=== PATIENT | female | born 1975 | race Caucasian/White ===

== ENCOUNTER → 2016-07-22 | Outpatient (CLI) | payer OTHER ==
[~2016-07-22] MED LIST: ABIL2TAB2 PO; ALBU17I INH; ALPR.25 PO; BUTA1CAP PO; CYCL-36 PO; CYMB30CA PO; ESTRTAB6; FIORTAB4 PO; HYDR-3533 PO; IBUP-232 PO; IBUP800T23 PO; LEVO.075 PO; METO10TA PO; MULTTAB67 PO; ORPH100T99 PO; RANI150 PO; REGL10TA5 PO; SYNT50TA PO; TAB-TAB PO; TOPA50TA7 PO; TOPI50TA4 PO; TRAM50TA PO; VENTAER INH
[2016-07-22 08:06] LABS: BICARBONATE 27.7 MEQ/L (21.0-32.0); THYROXINE (T4) 7.3 MCG/DL (4.8-13.9)
== END ==
LOC: CLAB 06:35
PROVIDERS: ATTEND Internal Medicine
DX: E03.9 Hypothyroidism, unspecified (principal); R79.89 Other specified abnormal findings of blood chemistry
CPT/HCPCS: 36415; 80048; 84436; 84443

== ENCOUNTER → 2016-07-31 | Outpatient (CLI) | payer OTHER ==
[2016-07-31 10:18] LABS: TOTAL PROTEIN 24 HOUR URINE 215 MG/24HR (0-150); URIC ACID - URINE TIMED 13.1 MG/DL; URIC ACID 24 HOUR URINE 0.6 GM/24HR (0.4-1.0); URINE TOTAL PROTEIN TIMED LESS THAN 5.0 MG/DL
[2016-07-31 10:19] LABS: CREAT 24 TIMED 33.9 MG/DL
[2016-07-31 10:25] LABS: CALCIUM - URINE TIMED LESS THAN 5.0 MG/DL
== END ==
LOC: CLAB 08:00
PROVIDERS: ATTEND Internal Medicine
DX: N28.9 Disorder of kidney and ureter, unspecified (principal)
CPT/HCPCS: 36415; 82340; 82575; 84157; 84560; 86335

== ENCOUNTER 2016-08-17 06:12 | Emergency (ER) | payer OTHER ==
[~2016-08-17] VITALS: Ht 172.7 cm; Wt 66.0 kg
[~2016-08-17 06:12] MED LIST changes: -ABIL2TAB2 PO; -BUTA1CAP PO; -CYMB30CA PO; -HYDR-3533 PO; -IBUP-232 PO; -IBUP800T23 PO; -LEVO.075 PO; -MULTTAB67 PO; -ORPH100T99 PO; -REGL10TA5 PO; -TOPA50TA7 PO; -TRAM50TA PO; -VENTAER INH
[2016-08-17 06:18] VITALS: BP 121/74; PULSE 70; RESP 20; TEMP 98.6; O2SAT 100
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
[2016-08-17] MEDS ORDERED: HYDR-3533 PO (07:17)
--- NOTE | 2016-08-17 07:19 | RADRPT ---
EXAM DATE/TIME: 08/17/2016 06:39 [facility] COMPARISON: No previous studies available for comparison. INDICATIONS : Right lower rib pain from trauma. MEDICAL HISTORY : None. SURGICAL HISTORY : None. ENCOUNTER: Initial ACUITY: 1 day PAIN SCORE: 7/10 LOCATION: Right flank Ribs FINDINGS: Single AP view of the chest. The lungs are clear. Cardiomediastinal silhouette within normal limits. No evidence of pleural effusion or pneumothorax. No gross evidence of fracture. Surgical clips are no paulina in the right upper quadrant of the abdomen. CONCLUSION: No acute cardiopulmonary disease identified. Avery Short MD on August 17, 2016 at 7:15 Board Certified Radiologist. This report was verified electronically.
== END 2016-08-17 07:33 | disposition home or self-care (01) ==
LOC: NEPB 06:12
DX: S20.211A Contusion of right front wall of thorax, initial encounter (principal); E03.9 Hypothyroidism, unspecified; E78.00 Pure hypercholesterolemia, unspecified; Y04.0XXA Assault by unarmed brawl or fight, initial encounter; Y93.9 Activity, unspecified; Y92.9 Unspecified place or not applicable; Y99.0 Civilian activity done for income or pay
CPT/HCPCS: 71010; 99283

== ENCOUNTER 2016-08-24 17:33 | Emergency (ER) | payer OTHER ==
[~2016-08-24] VITALS: Ht 172.7 cm; Wt 66.0 kg
[~2016-08-24 17:33] MED LIST changes: +HYDR-3533 PO
[2016-08-24 17:35] VITALS: BP 130/78; PULSE 85; RESP 14; TEMP 97.7; O2SAT 99
--- NOTE | 2016-08-24 18:26 | PD ---
HPI Chief Complaint: Injury Time Seen by Provider: 18:26 Travel History International Travel<30 days: No Contact w/Intl Traveler<30days: No Traveled to known affect area: No History of Present Illness HPI 40-year-old female presents to the emergency Department with complaint of left ankle pain after doing a handstand yesterday and falling backwards injuring her left ankle. She has been ambulatory on the affected extremity. Denies paresthesias, loss of sensation to the affected extremity. Reports decreased range of motion at the ankle secondary to pain and swelling. Reports bruising to the lateral aspect. Denies fever, chills, nausea, vomiting. Has taken Tylenol and ibuprofen with minimal relief of pain. Has tried elevating and icing it with no relief of symptoms. History of asthma. Allergies to adhesives , Bactrim, latex, morphine, Percocet. No other modifying factors or associated signs and symptoms. PFSH Past Medical History Arthritis: Yes (RIGHT KNEE, RIGHT WRIST) Asthma: Yes Autoimmune Disease: Yes Heart Rhythm Problems: No Cancer: No Cardiac Catheterization: No Cardiovascular Problems: No High Cholesterol: Yes Congestive Heart Failure: No Cerebrovascular Accident: No Diabetes: No Diminished Hearing: No Gastrointestinal Disorders: Yes GERD: No Genitourinary: No Headaches: Yes Hiatal Hernia: No Immune Disorder: No Musculoskeletal: Yes Neurologic: Yes Psychiatric: No Reproductive: No Respiratory: Yes (ASTHMA) Migraines: Yes Renal Failure: Yes Seizures: No Sleep Apnea: No Thyroid Disease: Yes (HYPOTHYROID) Ulcer: No PNEUMOCCOCAL Vaccine (Year): 3 ?: Not : 3 Para: 3 Dilation and Curettage (D&C): Yes Tubal Ligation: Yes Past Surgical History Abdominal Surgery: Yes (APPY, CHOLY) Appendectomy: Yes Cardiac Surgery: No Cholecystectomy: Yes Coronary Artery Bypass Graft: No Ear Surgery: No Endocrine Surgery: No Eye Surgery: No Genitourinary Surgery: No Hysterectomy: Yes Oral Surgery: No Thoracic Surgery: No Tonsillectomy: Yes Other Surgery: Yes Social History Alcohol Use: No Tobacco Use: No Substance Use: No Allergies-Medications (Allergen,Severity, Reaction): Coded Allergies: Adhesives (Verified Allergy, Severe, Itching, 08/17/16) Bactrim (Verified Allergy, Severe, Hives, 08/17/16) Latex (Verified Allergy, Severe, RASH AND SHORTNESS OF BREATH, 08/17/16) Morphine (Verified Allergy, Severe, Shortness of Breath, 08/17/16) Percocet (Verified Allergy, Severe, Shortness of Breath (PATIENT TAKES LORTAB AT HOME), 08/17/16) Reported Meds & Prescriptions Reported Meds & Active Scripts Active Ibuprofen 800 Mg Tab 800 Mg PO Q6HR PRN Lortab (Hydrocodone-Acetaminophen) 5-325 Mg Tab 1 Tab PO Q6H PRN Reglan (Metoclopramide HCl) 10 Mg Tab 10 Mg PO ONCE PRN Flexeril (Cyclobenzaprine HCl) 10 Mg Tab 10 Mg PO TID Reported Topamax (Topiramate) 50 Mg Tab 50 Mg PO TID Xanax 0.25 Mg (Alprazolam) 0.25 Mg Tab 0.25 Mg PO BID Zantac 150 Mg Tab (Ranitidine HCl) 150 Mg Tab 150 Mg PO DAILY Fioricet (Acetaminophen/Butalbital/Caffeine) Tab 1 Tab PO Q4HPRN FOR HEADACHE Proventil Mdi (Albuterol Sulfate) 17 Gm Aero 2 Puff INH Q4HPRN Synthroid 50 mcg (Levothyroxine Sodium) 50 Mcg Tab 50 Mcg PO DAILY@0600 Multivitamin (Multivitamins) 1 Tab Tab 1 Tab PO DAILY [Estroven] Review of Systems Except as stated in HPI: all other systems reviewed are Neg Physical Exam Narrative GENERAL: Well-nourished, well-developed female patient, in no acute distress SKIN: Warm and dry. HEAD: Atraumatic. Normocephalic. EYES: Pupils equal and round. No scleral icterus. No injection or drainage. ENT: Mucosa pink and moist. Airway patent. NECK: Trachea midline. CARDIOVASCULAR: Regular rate. RESPIRATORY: No accessory muscle use. GASTROINTESTINAL: Flat. MUSCULOSKELETAL: Left ankle with point tenderness to the lateral malleolar zone ; ecchymosis and edema to the lateral aspect; ecchymosis to the medial aspect; decreased range of motion; no obvious deformities. Left lower extremity supple and non-tense with 2+ pedal pulse and sensory intact. No obvious deformities. No clubbing. No cyanosis. No edema. NEUROLOGICAL: Awake and alert. Oriented 3. No obvious cranial nerve deficits. Motor grossly within normal limits. Normal speech. PSYCHIATRIC: Appropriate mood and affect; insight and judgment normal. Data Data Last Documented VS Vital Signs Date Time Temp Pulse Resp B/P Pulse Ox O2 Delivery O2 Flow Rate FiO2 08/24/16 17:35 97.7 85 14 130/78 99 Orders Ankle, Complete ([id number]) (08/24/16 18:21) Acetamin-Hydrocod 325-5 Mg (Cecil 5-325 (08/24/16 18:45) Crutches (08/24/16 18:54) Splint Or Brace Apply/Monitor (08/24/16 19:08) Brace Ankle Stirrup (08/24/16 ) [facility]DM Medical Decision Making Medical Screen Exam Complete: Yes Emergency Medical Condition: Yes Medical Record Reviewed: Yes Differential Diagnosis Ankle sprain, ankle fracture, ankle dislocation Narrative Course 40-year-old female with left ankle injury. Left lower extremity supple and non- tense with 2+ pedal pulses and sensory intact. Lortab administered in the ER. Left ankle x-ray ordered. 1900: Left ankle x-ray with no acute findings other than soft tissue swelling. Hi bandage and ankle stirrup splint applied. Crutches provided for support. Ibuprofen prescribed for home. Instructed patient to follow up if symptoms persist greater than 7-10 days. Patient verbalized understanding and agreement with treatment plan. Patient is medically cleared and stable for discharge. Discussed reasons to return to the emergency department. Instructed patient to follow up with primary care provider. Patient agrees with treatment plan. The patients vital signs are stable and the patient is stable for outpatient follow- up and treatment. Patient discharged home, stable and in no acute distress. Diagnosis Primary Impression: Left ankle sprain Qualified Code: S93.402A - Sprain of left ankle, unspecified ligament, initial encounter Referrals: Orthopedist Primary Care Physician Patient Instructions: Crutch Instructions (ED), General Instructions Additional Instructions: Tylenol/ibuprofen every 6 hours as directed and as needed for pain Rest, ice, compress, and elevate extremity to decrease pain and inflammation Brace for support Crutches for support Avoid aggravating activity; increase activity as tolerated Follow-up with primary care provider Return to the emergency department immediately with worsening symptoms Med/Other Pt SpecificInfo: Prescription(s) given Scripts Ibuprofen 800 Mg [id number] Mg PO Q6HR PRN (PAIN) #30 TAB Ref 0 Prov:Vivian Sarabia 08/24/16 Disposition: 01 DISCHARGE HOME Condition: Stable Vivian Sarabia Aug 24, 2016 18:26
[2016-08-24] MEDS ORDERED: ACETAMINOPHEN/HYDROcodone 325 MG/5 MG TAB PO ONE (18:45)
[2016-08-24] MEDS ORDERED: IBUP800T23 PO (19:09)
--- NOTE | 2016-08-24 19:09 | RADRPT ---
EXAM DATE/TIME: 08/24/2016 18:57 [facility] COMPARISON: No previous studies available for comparison. INDICATIONS : Left ankle pain with swelling and redness MEDICAL HISTORY : None. SURGICAL HISTORY : None. ENCOUNTER: Initial ACUITY: 1 day PAIN SCORE: 8/10 LOCATION: Left ankle FINDINGS: Ankle mortise is approximated. Mild soft tissue swelling at the lateral aspect of the ankle. No fract ures are seen. CONCLUSION: Mild soft tissue swelling. Timmy Tavares MD on August 24, 2016 at 19:07 Board Certified Radiologist. This report was verified electronically.
== END 2016-08-24 19:38 | disposition home or self-care (01) ==
LOC: NEPB 17:33
DX: S93.402A Sprain of unspecified ligament of left ankle, initial encounter (principal); E78.00 Pure hypercholesterolemia, unspecified; E03.9 Hypothyroidism, unspecified; J45.909 Unspecified asthma, uncomplicated; W18.30XA Fall on same level, unspecified, initial encounter; Y93.43 Activity, gymnastics; Y92.9 Unspecified place or not applicable
CPT/HCPCS: 73610; 99283; E0113; L1906

== ENCOUNTER 2016-11-23 02:19 | Inpatient (IN) | payer OTHER ==
[~2016-11-23] VITALS: Ht 172.7 cm; Wt 68.7 kg
[~2016-11-23 02:19] MED LIST changes: +IBUP800T23 PO
[2016-11-23 02:21] VITALS: BP 140/73; PULSE 81; RESP 16; TEMP 97.8; O2SAT 100
[2016-11-23] MEDS ORDERED: CYMB30CA PO (02:43)
[2016-11-23] MEDS ORDERED: REGL10TA5 PO (02:43)
[2016-11-23] MEDS ORDERED: TOPA50TA7 PO (02:43)
[2016-11-23] MEDS ORDERED: ALPR.25 PO (02:43)
[2016-11-23] MEDS ORDERED: LEVO.075 PO (02:43)
[2016-11-23] MEDS ORDERED: VENTAER INH (02:43)
[2016-11-23] MEDS ORDERED: BUTA1CAP PO (02:43)
[2016-11-23] MEDS ORDERED: MULTTAB67 PO (02:43)
--- NOTE | 2016-11-23 02:46 | PD ---
HPI Chief Complaint: Headache Time Seen by Provider: 02:38 Travel History International Travel<30 days: No Contact w/Intl Traveler<30days: No Traveled to known affect area: No History of Present Illness HPI 40-year-old female complains of headache, depression, suicidal. Patient has history of recurrent headache, migraine headache, in the past. Patient started having severe depression this evening with some suicidal ideation. Patient denies any overdose on medication. Patient denies any history of substance abuse or alcohol abuse. Patient states that headache is diffuse aching headache. Patient denies any visual change. Patient denies any neck pain. Patient denies any chest pain or shortness of breath. Patient denies abdominal pain. Patient denies any focal weakness or numbness of extremity. PFSH Past Medical History Arthritis: Yes (RIGHT KNEE, RIGHT WRIST) Asthma: Yes Autoimmune Disease: Yes Heart Rhythm Problems: No Cancer: No Cardiac Catheterization: No Cardiovascular Problems: No High Cholesterol: Yes Congestive Heart Failure: No Cerebrovascular Accident: No Diabetes: No Diminished Hearing: No Gastrointestinal Disorders: Yes GERD: No Genitourinary: No Headaches: Yes Hiatal Hernia: No Immune Disorder: No Musculoskeletal: Yes Neurologic: Yes Psychiatric: No Reproductive: No Respiratory: Yes (ASTHMA) Migraines: Yes Renal Failure: Yes Seizures: No Sleep Apnea: No Thyroid Disease: Yes (HYPOTHYROID) Ulcer: No PNEUMOCCOCAL Vaccine (Year): 3 : 3 Para: 3 Dilation and Curettage (D&C): Yes Tubal Ligation: Yes Past Surgical History Abdominal Surgery: Yes (APPY, CHOLY) Appendectomy: Yes Cardiac Surgery: No Cholecystectomy: Yes Coronary Artery Bypass Graft: No Ear Surgery: No Endocrine Surgery: No Eye Surgery: No Genitourinary Surgery: No Hysterectomy: Yes Oral Surgery: No Thoracic Surgery: No Tonsillectomy: Yes Other Surgery: Yes Social History Alcohol Use: No Tobacco Use: No Substance Use: No Allergies-Medications (Allergen,Severity, Reaction): Coded Allergies: Adhesives (Verified Allergy, Severe, Itching, 11/23/16) Bactrim (Verified Allergy, Severe, Hives, 11/23/16) Latex (Verified Allergy, Severe, RASH AND SHORTNESS OF BREATH, 11/23/16) Morphine (Verified Allergy, Severe, Shortness of Breath, 11/23/16) Percocet (Verified Allergy, Severe, Shortness of Breath (PATIENT TAKES LORTAB AT HOME), 11/23/16) Reported Meds & Prescriptions Reported Meds & Active Scripts Active Ibuprofen 800 Mg Tab 800 Mg PO Q6HR PRN Lortab (Hydrocodone-Acetaminophen) 5-325 Mg Tab 1 Tab PO Q6H PRN Reported Reglan (Metoclopramide HCl) 10 Mg Tab 10 Mg PO DIRECTED Fioricet (Thkdgzaegc-Hleffyqfengxy-Whqcpiko) 50-300-40 Mg Cap 2 Cap PO Q6H PRN Ventolin Hfa 18 GM Inh (Albuterol Sulfate) 90 Mcg/Act Aer 2 Puff INH Q4-6H PRN Multiple Vitamin 1 Tab 1 Tab PO DAILY Synthroid (Levothyroxine Sodium) 75 Mcg Tab 75 Mcg PO DAILY Topamax (Topiramate) 50 Mg Tab 50 Mg PO BID Xanax (Alprazolam) 0.25 Mg Tab 0.25 Mg PO Q4H PRN Cymbalta DR (Duloxetine HCl) 30 Mg Capdr 30 Mg PO DAILY [Estroven] Review of Systems General / Constitutional: No: Fever Eyes: No: Visual changes HENT: Positive: Headaches Cardiovascular: No: Chest Pain or Discomfort Respiratory: No: Shortness of Breath Gastrointestinal: No: Abdominal Pain Genitourinary: No: Dysuria Musculoskeletal: No: Pain Skin: No Rash Neurologic: No: Weakness Psychiatric: Positive: Depression, Suicidal Ideations Endocrine: No: Polydipsia Hematologic/Lymphatic: No: Easy Bruising Physical Exam Narrative GENERAL: Well-nourished, well-developed patient. SKIN: Focused skin assessment warm/dry. HEAD: Normocephalic. EYES: No scleral icterus. No injection or drainage. NECK: Supple, trachea midline. No JVD or lymphadenopathy. CARDIOVASCULAR: Regular rate and rhythm without murmurs, gallops, or rubs. RESPIRATORY: Breath sounds equal bilaterally. No accessory muscle use. GASTROINTESTINAL: Abdomen soft, non-tender, nondistended. MUSCULOSKELETAL: No cyanosis, or edema. BACK: Nontender without obvious deformity. No CVA tenderness. Neurologic exam normal. Data Data Last Documented VS Vital Signs Date Time Temp Pulse Resp B/P Pulse Ox O2 Delivery O2 Flow Rate FiO2 11/23/16 02:21 97.8 81 16 140/73 100 Orders Complete Blood Count With Diff (11/23/16 02:29) Comprehensive Metabolic Panel (11/23/16 02:29) Drug Screen, Random Urine (11/23/16 02:29) Alcohol (Ethanol) (11/23/16 02:29) Salicylates (Aspirin) (11/23/16 02:29) Tylenol (Acetaminophen) (11/23/16 02:29) Psych Screen (11/23/16 02:55) Labs Laboratory Tests Test 11/23/16 11/23/16 02:34 02:46 White Blood Count 9.0 TH/MM3 Red Blood Count 4.41 MIL/MM3 Hemoglobin 13.8 GM/DL Hematocrit 39.7 % Mean Corpuscular Volume 89.9 FL Mean Corpuscular Hemoglobin 31.3 PG Mean Corpuscular Hemoglobin 34.8 % Concent Red Cell Distribution Width 12.6 % Platelet Count 293 TH/MM3 Mean Platelet Volume 8.3 FL Neutrophils (%) (Auto) 44.3 % Lymphocytes (%) (Auto) 37.3 % Monocytes (%) (Auto) 13.3 % Eosinophils (%) (Auto) 3.9 % Basophils (%) (Auto) 1.2 % Neutrophils # (Auto) 4.0 TH/MM3 Lymphocytes # (Auto) 3.3 TH/MM3 Monocytes # (Auto) 1.2 TH/MM3 Eosinophils # (Auto) 0.4 TH/MM3 Basophils # (Auto) 0.1 TH/MM3 CBC Comment DIFF FINAL Differential Comment Sodium Level 141 MEQ/L Potassium Level 3.9 MEQ/L Chloride Level 108 MEQ/L Carbon Dioxide Level 27.1 MEQ/L Anion Gap 6 MEQ/L Blood Urea Nitrogen 11 MG/DL Creatinine 0.89 MG/DL Estimat Glomerular Filtration 71 ML/MIN Rate Random Glucose 94 MG/DL Calcium Level 8.1 MG/DL Total Bilirubin 0.2 MG/DL Aspartate Amino Transf 31 U/L (AST/SGOT) Alanine Aminotransferase 61 U/L (ALT/SGPT) Alkaline Phosphatase 80 U/L Total Protein 7.2 GM/DL Albumin 4.2 GM/DL Salicylates Level LESS THAN 1.7 MG/DL Acetaminophen Level LESS THAN 2.0 MCG/ML Ethyl Alcohol Level LESS THAN 3 MG/DL Urine Opiates Screen NEG Urine Barbiturates Screen POS Urine Amphetamines Screen NEG Urine Benzodiazepines Screen NEG Urine Cocaine Screen NEG Urine Cannabinoids Screen NEG MDM Medical Decision Making Medical Screen Exam Complete: Yes Emergency Medical Condition: Yes Interpretation(s) 3:18 AM. CBC within normal limit. CMP within normal limit. Urine drug screen positive for barbiturates. Acetaminophen negative. Salicylates negative. Alcohol negative. Differential Diagnosis Differential diagnosis including tension headache, cluster headache, migraine headache, chest disorder, depression, suicidal. Narrative Course 40-year-old female with headache, depression, suicidal. 3:18 AM. Patient is medical cleared for psychiatric evaluation and disposition. Diagnosis Primary Impression: Cephalgia Qualified Code: R51 - Nonintractable episodic headache, unspecified headache type Joby Shoemaker MD Nov 23, 2016 02:46
[2016-11-23 03:00] LABS: BASOPHIL # 0.1 TH/MM3 (0-0.2); BASOPHIL % 1.2 % (0.0-2.0); EOSINOPHIL # 0.4 TH/MM3 (0-0.4); EOSINOPHIL % 3.9 % (0.0-4.0); HEMATOCRIT 39.7 % (35.0-46.0); HEMO FLAGS DIFF FINAL; LYMPH % 37.3 % (9.0-44.0); LYMPHOCYTE # 3.3 TH/MM3 (1.0-4.8); MEAN CELL VOLUME 89.9 FL (80.0-100.0); MEAN CORPUSCULAR HEMOGLOBIN 31.3 PG (27.0-34.0); MEAN CORPUSCULAR HGB CONC 34.8 % (32.0-36.0); MONO % 13.3 % (0.0-8.0); NEUT % 44.3 % (16.0-70.0); PLATELET COUNT 293 TH/MM3 (150-450); RED BLOOD COUNT 4.41 MIL/MM3 (4.00-5.30); RED CELL DISTRIBUTION WIDTH 12.6 % (11.6-17.2)
[2016-11-23 03:01] LABS: AMPHETAMINE, URINE NEG (NEG); BARBITURATES, URINE POS (NEG); COCAINE, URINE NEG (NEG)
[2016-11-23 03:09] LABS: ACETAMINOPHEN LESS THAN 2.0 MCG/ML (10.0-30.0); ALT (GPT) 61 U/L (10-53)
[2016-11-23 03:11] LABS: ALKALINE PHOSPHATASE 80 U/L (45-117); TOTAL BILIRUBIN ADULT 0.2 MG/DL (0.2-1.0)
[2016-11-23 03:13] LABS: ANION GAP 6 MEQ/L (5-15); AST (GOT) 31 U/L (15-37); BICARBONATE 27.1 MEQ/L (21.0-32.0); BLOOD UREA NITROGEN 11 MG/DL (7-18); CHLORIDE 108 MEQ/L (98-107); GLOMERULAR FILTRATION RATE 71 ML/MIN (>89); POTASSIUM 3.9 MEQ/L (3.5-5.1); SODIUM (NA) 141 MEQ/L (136-145)
[2016-11-23] MEDS ORDERED: BENZTROPINE MESYLATE 1 MG TAB PO PRN (03:45)
[2016-11-23] MEDS ORDERED: diphenhydrAMINE HCL 50 MG CAP - HS PRN PO (03:45)
[2016-11-23] MEDS ORDERED: LORazepam 2 MG/ML VIAL IM PRN (03:45)
[2016-11-23] MEDS ORDERED: MAGNESIUM HYDROXIDE SUSP 30 ML CUP PO PRN (03:45)
[2016-11-23] MEDS ORDERED: ALUMINUM/MAGNESIUM/SIMETH 30 ML CUP PO PRN (03:45)
[2016-11-23] MEDS ORDERED: ACETAMINOPHEN 325 MG TAB PO PRN (03:45)
[2016-11-23] MEDS ORDERED: BENZTROPINE MESYLATE 2 MG/2 ML VIAL IM PRN (03:45)
[2016-11-23] MEDS ORDERED: LORazepam 1 MG TAB PO PRN (03:45)
[2016-11-23 06:17] VITALS: BP 125/58; PULSE 76; RESP 18; TEMP 97.4; O2SAT 99
[2016-11-23] MEDS: NICOTINE 21 MG/24 HR PATCH T-DERMAL SCH (09:00)
[2016-11-23] MEDS: ARIPiprazole 2 MG TAB PO SCH (14:04)
--- NOTE | 2016-11-23 14:07 | HHI.HP ---
Provisional Diagnosis Admission Date Nov 23, 2016 at 03:35 Frazee I. 1. Adjustment disorder with depressed mood Frazee II. Deferred Frazee V. GAF is 40 presently Certification of Person's Competence To Provide Express and Informed Consent I have personally examined Blank Pelletier , a person being served at [facility] on, Nov 23, 2016 14:07. Express and informed consent means consent voluntarily given in writing, by a competent person, after sufficient explanation and disclosure of the subject matter involved to enable the person to make a knowing and willful decision without any element of force, fraud, deceit, duress, or other form of constraint or coercion. This person is 18 years of age or older, is not now known to be incompetent to consent to treatment with a guardian advocate, and does not have a health care surrogate or proxy currently making medical treatment decisions. I have found this person to be one of the following: [x] Competent to provide express and informed consent, as defined above, for voluntary admission to this facility and is competent to provide express and informed consent for treatment. He/she has the consistent capacity to make well reasoned, willful, and knowing decisions concerning his or her medical or mental health treatment. The person fully and consistently understands the purpose of the admission for examination/placement and is fully capable of personally exercising all rights assured under [place] Incompetent to provide express and informed consent to voluntary admission, and this is incompetent to provide express and informed consent to treatment. The person must be transferred to involuntary status and a petition for a guardian advocate filed with the Circuit Court. [] Refusing to provide express and informed consent to voluntary admission but is competent to provide express and informed consent for treatment. The person must be discharged or transferred to involuntary status. Form shall be completed within 24 hours of a person's arrival at the receiving facility and filed in the clinical record of each person: 1. Admitted on a voluntary basis 2. Permitted to provide express and informed consent to his/her own treatment 3. Allowed to transfer from involuntary to voluntary status 4. Prior to permitting a person to consent to his or her own treatment after having been previously found incompetent to consent to treatment. History of Present Illness Capacity: Has Capacity HPI Mrs. Pelletier is a 40-year-old female with a reported history of depression who presented voluntarily for psychiatric evaluation with complaints of depression and suicidal ideation. Reviewing the electronic medical record, I see no prior psychiatric contact within our system. Patient seen and examined with nurse Mathis. Chart reviewed. Case discussed with nursing staff. On my examination today, the patient complains of worsening depression since her mother about a year ago. She says that she has been having suicidal thoughts for the last 2 days or so and says that she could overdose on pills. 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 She says that these feelings became acutely worse last night as her parents anniversary was coming up today. She says that she tried to exercise which normally helps lift her mood but it didn' t on this occasion. Feeling as badly as she did, she decided to seek psychiatric help. Suicidal ideation is lessening today. Mood remains depressed. Sleep varies between extremely poor and hypersomnia. Fatigue is present. Appetite decreased. No hopeless or worthless feelings. Some generalized anxiety but no panic or obsessional thinking or compulsive behaviors. Denies audiovisual hallucinations. No evident delusions. The remainder of the psychiatric ROS is negative. No physical complaints at this time. Past psychiatric history: The patient endorses a history of depression. She is not currently under the care of a psychiatrist. She receives Cymbalta at a dose of 30 mg from her primary care doctor. She has tried to titrate this in the past but found that it worsens suicidal ideation at higher doses. She was admitted to [facility] on one occasion in the past following an overdose at age 20. She also endorses a history of nonsuicidal self-injurious behavior in adolescence. Other medication trials include Wellbutrin, on which the patient experienced intolerable weight gain. Review of Systems Except as stated in HPI: all other systems reviewed are Neg Past Psych History Psychological trauma history Denies any trauma history to me. Violence risk - others (6 mos) Lower imminent risk. Denies HI. No known history of violence. Violence risk - self (6 mos) Elevated. Recent worsening of mood with onset of SI. H/o SA. Substance Abuse History Drugs/Alcohol past 12 months Patient denies any history of abuse of drugs or alcohol. Past Family Social History Coded Allergies: Adhesives (Verified Allergy, Severe, Itching, 11/23/16) Bactrim (Verified Allergy, Severe, Hives, 11/23/16) Latex (Verified Allergy, Severe, RASH AND SHORTNESS OF BREATH, 11/23/16) Morphine (Verified Allergy, Severe, Shortness of Breath, 11/23/16) Percocet (Verified Allergy, Severe, Shortness of Breath (PATIENT TAKES LORTAB AT HOME), 11/23/16) Past Medical History See electronic medical record. Takes Topamax and Fioricet for migraine headache. Takes Synthroid for hypothyroidism. Takes albuterol for asthma. Active Scripts Ibuprofen 800 Mg [id number] Mg PO Q6HR PRN (PAIN) #30 TAB Ref 0 Prov:Vivian Sarabia TOOLROOM KEEPER 08/24/16 Hydrocodone-Acetaminophen (Lortab)5-325 Mg Tab1 Tab PO Q6H PRN (PAIN GREATER THAN 6) #12 TAB Ref 0 Prov:Lucila See MD 08/17/16 Reported Medications Metoclopramide (Reglan)10 Mg Tab10 Mg PO DIRECTED #120 TAB Ref 0 11/23/16 Suxkqnweox-Rachophupakgl-Wpoqzjip (Fioricet)50-300-40 Mg Cap2 Cap PO Q6H PRN ( HEADACHE) Ref 0 11/23/16 Albuterol 18 GM Inh (Ventolin Hfa 18 GM Inh)90 Mcg/Act Aer2 Puff INH Q4-6H PRN ( SHORTNESS OF BREATH) #1 INHALER Ref 0 11/23/16 Multiple Vitamin 1 Tab1 Tab PO DAILY Ref 0 11/23/16 Levothyroxine (Synthroid)75 Mcg Tab75 Mcg PO DAILY #30 TAB Ref 0 11/23/16 Topiramate (Topamax)50 Mg Tab50 Mg PO BID #60 TAB Ref 0 11/23/16 Alprazolam (Xanax)0.25 Mg Tab0.25 Mg PO Q4H PRN (ANXIETY) Ref 0 11/23/[address] (Cymbalta DR)30 Mg Capdr30 Mg PO DAILY #30 CAP Ref 0 11/23/16 [Estroven] No Conflict Check 02/03/11 Current Medications Medications (Trade) Dose Ordered Sig/Ifrah Route Start Time Stop Time Status Last Admin (Ativan) 1 mg Q6H PRN PO 11/23/16 03:45 (Ativan Inj) 1 mg Q6H PRN IM 11/23/16 03:45 (Cogentin) 1 mg Q12H PRN PO 11/23/16 03:45 (Cogentin Inj) 1 mg Q12H PRN IM 11/23/16 03:45 (Benadryl) 50 mg HS PRN PO 11/23/16 03:45 (Tylenol) 650 mg Q4H PRN PO 11/23/16 03:45 (Milk Of Magnesia Liq) 30 ml DAILY PRN PO 11/23/16 03:45 (Mag-Al Plus Susp Liq) 30 ml Q6H PRN PO 11/23/16 03:45 (Habitrol 21 Mg Patch.24 Hr) 1 patch DAILY T-DERMAL 11/23/16 09:00 Miscellaneous Information 1 HS T-DERMAL 11/23/16 21:00 (Proair Hfa Inh) 2 puff Q4H PRN INH 11/23/16 14:15 UNV (Cymbalta Dr) 30 mg DAILY PO 11/24/16 09:00 UNV (Synthroid) 75 mcg DAILY PO 11/24/16 09:00 UNV (Topamax) 50 mg BID PO 11/23/16 21:00 UNV Non-Formulary Medication 2 cap Q6H PRN PO 11/23/16 14:15 UNV Non-Formulary Medication 1 tab DAILY PO 11/24/16 09:00 UNV Family History Patient reports that her mother had a history of depression and may have intentionally overdosed. Unsure of family chemical dependency history. She does suspect that her maternal grandfather was an alcoholic. Social History Patient is although she notes that the marriage is somewhat tense. She has 3 children. She works as a nurse in the emergency department. She denies any or legal history. She was raised [employer] but grew away from the yazdanism after her mother's passing. Her keeps a shotgun but she does not have access to it. Patient's Strengths (min. 2) Intelligent. Verbally fluent. Physical Exam Physical examination completed by the ED provider. On my examination today, the patient appears to be in no acute physical distress. No motor abnormalities noted. Laboratories and vital signs reviewed: Vital Signs Vital Signs Date Time Temp Pulse Resp B/P Pulse Ox O2 Delivery O2 Flow Rate FiO2 11/23/16 06:17 97.4 76 18 125/58 99 Lab Results Item Value Date Time White Blood Count 9.0 TH/MM3 11/23/16 0234 Hemoglobin 13.8 GM/DL 11/23/16 0234 Platelet Count 293 TH/MM3 11/23/16 0234 Sodium Level 141 MEQ/L 11/23/16 0234 Potassium Level 3.9 MEQ/L 11/23/16 0234 Chloride Level 108 MEQ/L H 11/23/16 0234 Carbon Dioxide Level 27.1 MEQ/L 11/23/16 0234 Blood Urea Nitrogen 11 MG/DL 11/23/16 0234 Creatinine 0.89 MG/DL 11/23/16 0234 Aspartate Amino Transf (AST/SGOT) 31 U/L 11/23/16 0234 Alanine Aminotransferase (ALT/SGPT) 61 U/L H 11/23/16 0234 Alkaline Phosphatase 80 U/L 11/23/16 0234 Free Thyroxine 0.94 NG/DL 11/23/16 0234 Thyroid Stimulating Hormone 3rd Gen 1.820 uIU/ML 11/23/16 0234 Beta HCG, Qualitative LESS THAN 1 MIU/ML 11/23/16 0234 Urine Barbiturates Screen POS H 11/23/16 0246 Ethyl Alcohol Level LESS THAN 3 MG/DL 11/23/16 0234 Mental Status Examination Patient is in hospital gown. She is fairly well groomed and certainly maintaining basic hygiene. She is awake and alert and oriented to person and hospital at least. No evidence of delirium. No abnormal motor movements noted. Speech is within normal limits for rate, tone and volume. Language and fund of knowledge seem average. Mood is depressed and affect is restricted. Thought process linear. No loosening of associations. No evident delusional beliefs. Denies audiovisual hallucinations. Suicidal ideation is lessening. No reported urge to hurt herself on the inpatient psychiatric unit. No homicidal ideation. Insight and judgment are fair. Assessment & Plan Problem List: (1) Adjustment disorder ICD Code: F43.20 Assessment & Plan This is a 40-year-old female with psychiatric history as detailed above who is presently voluntarily admitted to the inpatient psychiatric unit. Patient describes recent acute worsening of depression overlying the general trend towards worsening mood over the past year or so since her mother's passing. Patient describes acute onset of suicidal ideation. Patient has been maintained on Cymbalta at low dose and would like to continue this as it reportedly helps with migraine headaches. We discussed various augmentation strategies and settle on the treatment plan detailed below. Patient requires psychiatric admission at this time for observation and stabilization. Admit inpatient. Voluntary status. Continue Cymbalta as ordered. Augment with Abilify 2 mg daily. Continue Fioricet and Topamax for migraine headache. Continue albuterol inhaler for asthma. Continue Synthroid for hypothyroidism. TFTs within normal limits. Ativan as needed for anxiety, Cogentin as needed for EPS, Benadryl as needed for sleep. Vitals every shift. Counselor to see. Disposition planning. Estimated length of stay: 5-7 days. Discharge Planning Pending psychiatric stabilization. Request HC Surrog/Guard Advoc?: No Problem Qualifiers (1) Adjustment disorder: Qualified Code: F43.21 - Adjustment disorder with depressed mood Gareth Prince MD Nov 23, 2016 14:07
[2016-11-23] MEDS ORDERED: ALBUTEROL SULFATE 90 MCG/ACT HFA 18 GM INHALER INH PRN (14:15)
[2016-11-23 14:34] LABS: FREE T4 0.94 NG/DL (0.76-1.46)
[2016-11-23 14:39] LABS: BHCG SCREEN QUALITATIVE LESS THAN 1 MIU/ML (0-5)
[2016-11-23] MEDS: ACETAMIN 325 MG/BUTALBITAL 50 MG/CAFFEINE 40 MG TAB PO PRN (17:37)
[2016-11-23 18:24] VITALS: BP 120/65; PULSE 74; RESP 18; TEMP 97.7; O2SAT 98
[2016-11-23] MEDS: REMOVE OLD NICOTINE PATCH T-DERMAL SCH (21:00)
[2016-11-23] MEDS: TOPIRAMATE 25 MG TAB PO SCH (22:35)
[2016-11-24 06:19] VITALS: BP 111/62; PULSE 75; RESP 16; TEMP 98.6; O2SAT 100
[2016-11-24] MEDS: NICOTINE 21 MG/24 HR PATCH T-DERMAL SCH (08:34)
[2016-11-24] MEDS: ARIPiprazole 2 MG TAB PO SCH (08:34)
[2016-11-24] MEDS: DULoxetine HCl DR 30 MG CAP PO SCH (08:34)
[2016-11-24] MEDS: MULTIVITAMIN TAB PO SCH (08:34)
[2016-11-24] MEDS: TOPIRAMATE 25 MG TAB PO SCH ×2 (08:34→20:42)
[2016-11-24] MEDS: ACETAMIN 325 MG/BUTALBITAL 50 MG/CAFFEINE 40 MG TAB PO PRN (09:00)
[2016-11-24] MEDS ORDERED: LEVOTHYROXINE SODIUM 75 MCG TAB PO SCH (09:00)
[2016-11-24 10:26] LABS: HDL CHOLESTEROL 69.7 MG/DL (40.0-60.0); LDL CHOLESTEROL 56 MG/DL (0-99)
--- NOTE | 2016-11-24 17:14 | HHI.PYPN ---
Subjective Remarks Pt seen and discussed with staff. She is tolerating Abilify without side effects. She reports that mood feels better today and suicidal ideation has lessened. She reports energy level is better today. She visited with family without incident. No HI. No psychosis. Objective Alert: Yes [place]: Person, Place, Date, Situation Mood: Depressed Affect: Restricted Memory Intact: Immediate, Recent, Remote Hallucinations: Other (none) Delusions: No Delusion Type: Other (none) Suicidal: Ideation (denies) Homicidal: Ideation (denies) Insight/Judgment poor Labs Test 11/24/16 09:32 Triglycerides Level 152 MG/DL Cholesterol Level 156 MG/DL LDL Cholesterol 56 MG/DL HDL Cholesterol 69.7 MG/DL Cholesterol/HDL Ratio 2.23 RATIO Vitals/IOs Vital Signs Date Time Temp Pulse Resp B/P Pulse Ox O2 Delivery O2 Flow Rate FiO2 11/24/16 06:19 98.6 75 16 111/62 100 Assessment & Plan Problem List: (1) Adjustment disorder ICD Code: F43.20 Assessment & Plan Continue current tx plan. Estimated LOS: days Justification for Cont. Inpt. monitoring for safety Request HC Surrog/Guard Advoc?: No Problem Qualifiers (1) Adjustment disorder: Qualified Code: F43.21 - Adjustment disorder with depressed mood Emily Jimenez MD Nov 24, 2016 17:14
[2016-11-24 18:00] VITALS: BP 129/65; PULSE 78; RESP 18; TEMP 98.6; O2SAT 100
[2016-11-24] MEDS: REMOVE OLD NICOTINE PATCH T-DERMAL SCH (20:58)
[2016-11-25 06:00] VITALS: BP 123/69; PULSE 73; RESP 16; TEMP 96.8; O2SAT 94
[2016-11-25] MEDS ORDERED: LEVOTHYROXINE SODIUM 75 MCG TAB PO SCH (06:00)
[2016-11-25] MEDS: NICOTINE 21 MG/24 HR PATCH T-DERMAL SCH (09:00)
[2016-11-25] MEDS: ARIPiprazole 2 MG TAB PO SCH (09:00)
[2016-11-25] MEDS: MULTIVITAMIN TAB PO SCH (09:16)
[2016-11-25] MEDS: DULoxetine HCl DR 30 MG CAP PO SCH (09:16)
[2016-11-25] MEDS: ACETAMIN 325 MG/BUTALBITAL 50 MG/CAFFEINE 40 MG TAB PO PRN (09:17)
[2016-11-25] MEDS ORDERED: ABIL2TAB2 PO (11:21)
--- NOTE | 2016-11-25 11:22 | HHI.DS ---
Psychiatry Discharge Summary Inpatient Psychiatric care?: Yes Advance Directive: No Reason Not Provided: DID NOT WANT Mental Health AdvanceDirective: No Health Care Proxy: No Admission Admission Date Nov 23, 2016 at 03:35 Admission Diagnosis: (1) Adjustment disorder ICD Code: F43.20 Brief History Mrs. Pelletier is a 40-year-old female with a reported history of depression who presented voluntarily for psychiatric evaluation with complaints of depression and suicidal ideation. Reviewing the electronic medical record, I see no prior psychiatric contact within our system. Patient seen and examined with nurse Delfina. Chart reviewed. Case discussed with nursing staff. On my examination today, the patient complains of worsening depression since her mother about a year ago. She says that she has been having suicidal thoughts for the last 2 days or so and says that she could overdose on pills. 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 She says that these feelings became acutely worse last night as her parents anniversary was coming up today. She says that she tried to exercise which normally helps lift her mood but it didn' t on this occasion. Feeling as badly as she did, she decided to seek psychiatric help. Suicidal ideation is lessening today. Mood remains depressed. Sleep varies between extremely poor and hypersomnia. Fatigue is present. Appetite decreased. No hopeless or worthless feelings. Some generalized anxiety but no panic or obsessional thinking or compulsive behaviors. Denies audiovisual hallucinations. No evident delusions. The remainder of the psychiatric ROS is negative. No physical complaints at this time. Past psychiatric history: The patient endorses a history of depression. She is not currently under the care of a psychiatrist. She receives Cymbalta at a dose of 30 mg from her primary care doctor. She has tried to titrate this in the past but found that it worsens suicidal ideation at higher doses. She was admitted to [facility] on one occasion in the past following an overdose at age 20. She also endorses a history of nonsuicidal self-injurious behavior in adolescence. Other medication trials include Wellbutrin, on which the patient experienced intolerable weight gain. Tobacco Use In Past 30 Days: No Tobacco Past 30 Days Alcohol Use: Never Hospital Course Patient was admitted to a locked, inpatient psychiatric unit. Appropriate precautions were in place throughout patient's hospital stay. Patient was seen and examined daily on the unit by psychiatry and also visited by counselor. Medications were adjusted. Patient tolerated medication changes well without side effects. Patient had improvement in her presenting psychiatric symptomatology during the course of her hospital stay. There was no evidence of any suicidality or homicidality on the inpatient unit. Patient remained in good behavioral control. She has been sleeping and eating well per charting. On the day of discharge: Patient seen and examined with nurse. Chart reviewed. Case discussed with nursing staff who reports patient has been no behavioral problem on the unit. On my examination today, the patient is in good spirits. She tells me that she is feeling much improved today versus admission and is requesting discharge from the inpatient psychiatric unit today. She says that she has discussed her situation with her family and has been particularly heartened by the outpouring of support from family. She denies any ongoing suicidal or homicidal ideation, intent or plan. She is future oriented. Mood is improved versus admission. No audiovisual hallucinations or other psychotic symptoms. No hypomanic or manic symptoms. Denies side effects from medications. No physical complaints. With the patient's permission I obtained collateral from her to the effect that he has no concerns about the patient returning home today. I have counseled to secure the home of all potential means of self-harm including guns, knives and medications and also to dispense patient's medications to her a day or 2 at a time to minimize the risk of overdose. I have also counseled him to have the patient brought back to the emergency room if there are any signs of trouble. Weighing the acute, chronic, and protective factors and based on the available evidence, I side laster to a reasonable degree of medical certainty that the patient is at low imminent risk of harm to self or others from a mental illness as defined under the [place] act and her level of function is adequate for outpatient care. Patient is requesting discharge from the inpatient psychiatric unit today and does not meet criteria for involuntary psychiatric hospitalization so I must arrange for her discharge today with psychiatric follow-up as arranged by counselor. Patient is also to follow-up with primary care. I have counseled the patient regarding warning signs for need to return to the psychiatric emergency room was part of a general safety plan. I have provided the patient with a prescription for Abilify, and the patient reports that she has an adequate supply of her other medications at home. Results Blood Pressure 123 / 69 Vital Signs Date Time Temp Pulse Resp B/P Pulse Ox O2 Delivery O2 Flow Rate FiO2 11/25/16 06:00 96.8 73 16 123/69 94 Laboratory Tests Test 11/23/16 11/23/16 11/24/16 02:34 02:46 09:32 Monocytes (%) (Auto) 13.3 % (0.0-8.0) Monocytes # (Auto) 1.2 TH/MM3 (0-0.9) Chloride Level 108 MEQ/L (98-107) Estimat Glomerular Filtration 71 ML/MIN (>89) Rate Calcium Level 8.1 MG/DL (8.5-10.1) Alanine Aminotransferase 61 U/L (10-53) (ALT/SGPT) Salicylates Level LESS THAN 1.7 MG/DL (2.8-20.0) Acetaminophen Level LESS THAN 2.0 MCG/ML (10.0-30.0) Urine Barbiturates Screen POS (NEG) Triglycerides Level 152 MG/DL (42-150) HDL Cholesterol 69.7 MG/DL (40.0-60.0) Laboratory Results Test 11/24/16 09:32 Triglycerides Level 152 MG/DL (42-150) Cholesterol Level 156 MG/DL (120-200) LDL Cholesterol 56 MG/DL (0-99) HDL Cholesterol 69.7 MG/DL (40.0-60.0) Summary of Procedures None done Imaging None done Pending results at discharge: No Medications # of Antipsychotic meds at D/C: 1 Approp Antipsych med options 1 - Minimum of three failed multiple trials of monotherapy. 2 - Documented plan to taper to monotherapy due to previous use of multiple meds OR cross-taper in progress at D/C. 3 - Documentation of augmentation of Clozapine. 4 - Justification other than those listed in allowable values 1-3, document here : Discharge Discharge Date: Nov 25, 2016 Discharge Diagnosis: (1) Adjustment disorder Diagnosis: Principal (stabilized and improved) ICD Code: F43.20 GAF on discharge is 60 Mental Status Exam at Disch Patient is casually dressed. She is well groomed. She is awake and alert and oriented to person and hospital at least. No evidence of delirium. No abnormal motor movements noted. Speech is within normal limits for rate, tone and volume. Language and fund of knowledge average. Mood is improved versus admission and affect is full and reactive. Thought process linear. No loosening of associations. No evident delusions. Denies audiovisual hallucinations. Denies suicidal or homicidal ideation, intent or plan. Insight and judgment are fair. Pt Condition on Discharge: Stable Discharge Disposition: Discharge Home Discharge Instructions Diet Instructions: As Tolerated, No Restrictions Activities you can perform: Weight Bearing as Felicia Scheduled Appointment: as per counselor's notes New Medications: Aripiprazole (Abilify) 2 Mg Tab 2 MG PO DAILY Mental Health Days 15 Ref 1 TAB Continued Medications: Albuterol 18 GM Inh (Ventolin Hfa 18 GM Inh) 90 Mcg/Act Aer 2 PUFF INH Q4-6H PRN SHORTNESS OF BREATH #1 Ref 0 INHALER Ejtqhanuus-Midktbvoypaua-Ceevayqb (Fioricet) 50-300-40 Mg Cap 2 CAP PO Q6H PRN HEADACHE Ref [address] (Cymbalta DR) 30 Mg Capdr 30 MG PO DAILY #30 Ref 0 CAP Levothyroxine (Synthroid) 75 Mcg Tab 75 MCG PO DAILY Thyroid #30 Ref 0 TAB Metoclopramide (Reglan) 10 Mg Tab 10 MG PO DIRECTED #120 Ref 0 TAB Multiple Vitamin (Multiple Vitamin) 1 Tab 1 TAB PO DAILY Nutritional Supplement Ref 0 TAB Topiramate (Topamax) 50 Mg Tab 50 MG PO BID Control Seizures #60 Ref 0 TAB ([Estroven]) Discontinued Medications: Alprazolam (Xanax) 0.25 Mg Tab 0.25 MG PO Q4H PRN ANXIETY Ref 0 TAB Hydrocodone-Acetaminophen (Lortab) 5-325 Mg Tab 1 TAB PO Q6H PRN PAIN GREATER THAN 6 #12 Ref 0 TAB Ibuprofen (Ibuprofen) 800 Mg Tab 800 MG PO Q6HR PRN PAIN #30 Ref 0 TAB Discharge Time > 30 minutes Discharge/Advance Care Plan Health Problems: (1) Adjustment disorder Goals to promote your health * To prevent worsening of your condition and complications * To maintain your health at the optimal level Directions to meet your goals Take your medications as prescribed Follow your dietary instruction Follow activity as directed Keep your appointments as scheduled Take your immunizations and boosters as scheduled If your symptoms worsen call your PCP, if no PCP go to Urgent Care Center or Emergency Room For 13/01 questions related to your inpatient stay or results of tests pending at discharge, please contact Dr. Gareth Prince at Smoking is Dangerous to Your Health. Avoid second hand smoking Problem Qualifiers (1) Adjustment disorder: Qualified Code: F43.21 - Adjustment disorder with depressed mood Gareth Prince MD Nov 25, 2016 11:21
[2016-11-25 11:40] LABS: HEMOGLOBIN A1a 0.9 %; HEMOGLOBIN A1b 0.8 %; HEMOGLOBIN Ao 86.6 %; HEMOGLOBIN F 0.9 %; HEMOGLOBIN LA1C 1.9 %; HEMOGLOBIN P3 3.5 %
== END 2016-11-25 12:25 | disposition home or self-care (01) | DRG 882 ==
LOC: NEPE 02:19 → NEDA 03:35 → H260 04:15
PROVIDERS: ADMIT Psychiatry & Neurology Psychiatry; ATTEND Psychiatry & Neurology Psychiatry
DX: F43.20 Adjustment disorder, unspecified (principal); R45.851 Suicidal ideations; E03.9 Hypothyroidism, unspecified; G43.909 Migraine, unspecified, not intractable, without status migrainosus; J45.909 Unspecified asthma, uncomplicated
CPT/HCPCS: 80053; 80061; 80307; 83036; 84439; 84443; 84703; 85025

== ENCOUNTER 2016-12-07 07:35 | Emergency (ER) | payer OTHER ==
[~2016-12-07] VITALS: Ht 172.7 cm; Wt 66.0 kg
[~2016-12-07 07:35] MED LIST changes: +ABIL2TAB2 PO; -ALBU17I INH; -ALPR.25 PO; +BUTA1CAP PO; -CYCL-36 PO; +CYMB30CA PO; -FIORTAB4 PO; -HYDR-3533 PO; -IBUP800T23 PO; +LEVO.075 PO; -METO10TA PO; +MULTTAB67 PO; -RANI150 PO; +REGL10TA5 PO; -SYNT50TA PO; -TAB-TAB PO; +TOPA50TA7 PO; -TOPI50TA4 PO; +VENTAER INH
[2016-12-07 07:38] VITALS: BP 124/75; PULSE 78; RESP 20; TEMP 98; O2SAT 100
--- NOTE | 2016-12-07 07:57 | PD ---
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 Patient states since that time she's had increasing pain in the right upper shoulder, scapular region, with spasm extending into the right paraspinous region. Patient denies numbness tingling or weakness. Patient states the symptoms have come on gradually over the last few hours. Patient has tried ibuprofen and he without improvement. This was a workplace injury. Pain is a 6/10 with increased pain with movement. Patient is allergic to adhesives, Bactrim, latex, morphine, and Percocet. PFSH Past Medical History Arthritis: Yes (RIGHT WRIST AND RIGHT KNEE) Asthma: Yes Autoimmune Disease: No Anxiety: Yes Depression: Yes Heart Rhythm Problems: No Cancer: No Cardiac Catheterization: No Cardiovascular Problems: No High Cholesterol: Yes (CORRECTED BY DIET) Chemotherapy: No Chest Pain: No Congestive Heart Failure: No COPD: No Cerebrovascular Accident: No Diabetes: No Diminished Hearing: No Endocrine: No Gastrointestinal Disorders: Yes GERD: No Genitourinary: Yes Headaches: Yes Hiatal Hernia: No Immune Disorder: No Kidney Stones: No Musculoskeletal: Yes Neurologic: Yes Psychiatric: Yes (patient has history with depression and self harming) Reproductive: No Respiratory: Yes (ASTHMA) Immunizations Current: Yes Migraines: Yes Renal Failure: Yes (STAGE 2 KIDNEY FAILURE) Seizures: No Sickle Cell Disease: No Sleep Apnea: No Thyroid Disease: Yes (HYPOTHYROID) Ulcer: No PNEUMOCCOCAL Vaccine (Year): 3 ?: Not : 3 Para: 3 Dilation and Curettage (D&C): Yes Tubal Ligation: Yes Past Surgical History Abdominal Surgery: Yes (GALLBLADDER, APPENDIX) AICD: No Appendectomy: Yes Arteriovenous Shunt: No Cardiac Surgery: No Cholecystectomy: Yes Coronary Artery Bypass Graft: No Ear Surgery: No Endocrine Surgery: No Eye Surgery: No Genitourinary Surgery: No Gynecologic Surgery: Yes (TUBAL, HYSTER) Hysterectomy: Yes Insulin Pump: No Joint Replacement: No Oral Surgery: Yes (WISDOM) Pacemaker: No Thoracic Surgery: No Tonsillectomy: Yes Other Surgery: Yes Social History Alcohol Use: No Tobacco Use: No Substance Use: No Allergies-Medications (Allergen,Severity, Reaction): Coded Allergies: Adhesives (Verified Allergy, Severe, Itching, 11/23/16) Bactrim (Verified Allergy, Severe, Hives, 11/23/16) Latex (Verified Allergy, Severe, RASH AND SHORTNESS OF BREATH, 11/23/16) Morphine (Verified Allergy, Severe, Shortness of Breath, 11/23/16) Percocet (Verified Allergy, Severe, Shortness of Breath (PATIENT TAKES LORTAB AT HOME), 11/23/16) Reported Meds & Prescriptions Reported Meds & Active Scripts Active Abilify (Aripiprazole) 2 Mg Tab 2 Mg PO DAILY 15 Days Reported Reglan (Metoclopramide HCl) 10 Mg Tab 10 Mg PO DIRECTED Fioricet (Gipactcrht-Mbdfcyutltdcj-Ibyzmgvq) 50-300-40 Mg Cap 2 Cap PO Q6H PRN Ventolin Hfa 18 GM Inh (Albuterol Sulfate) 90 Mcg/Act Aer 2 Puff INH Q4-6H PRN Multiple Vitamin 1 Tab 1 Tab PO DAILY Synthroid (Levothyroxine Sodium) 75 Mcg Tab 75 Mcg PO DAILY Topamax (Topiramate) 50 Mg Tab 50 Mg PO BID Cymbalta DR (Duloxetine HCl) 30 Mg Capdr 30 Mg PO DAILY [Estroven] Review of Systems General / Constitutional: No: Fever Eyes: No: Visual changes HENT: No: Headaches Cardiovascular: No: Chest Pain or Discomfort Respiratory: No: Shortness of Breath Gastrointestinal: No: Abdominal Pain Genitourinary: No: Dysuria Musculoskeletal: Positive: Myalgias, Limited ROM, Pain Skin: No Rash Neurologic: No: Weakness Psychiatric: No: Depression Endocrine: No: Polydipsia Hematologic/Lymphatic: No: Easy Bruising Physical Exam Narrative GENERAL: Patient appears in mild to moderate distress. SKIN: Warm and dry. Normal color. Normal turgor. No rash. HEAD: Atraumatic. Normocephalic. EYES: Pupils equal and round. No scleral icterus. No injection or drainage. ENT: No nasal bleeding or discharge. Mucous membranes pink and moist. NECK: Trachea midline. No bony tenderness or step-off. Patient has soft tissue tenderness and spasm along the right scalenes and paraspinous muscles extending into the trapezius region. Range of motion is somewhat limited secondary to discomfort and spasm. CARDIOVASCULAR: Regular rate and rhythm. RESPIRATORY: No accessory muscle use. Clear to auscultation. Breath sounds equal bilaterally. MUSCULOSKELETAL: Extremities without clubbing, cyanosis, or edema. No obvious deformities. NEUROLOGICAL: Awake and alert. No obvious cranial nerve deficits. Motor grossly within normal limits. Five out of 5 muscle strength in the arms and legs. Normal speech. PSYCHIATRIC: Appropriate mood and affect; insight and judgment normal. GENERAL: SKIN: Warm and dry. HEAD: Atraumatic. Normocephalic. EYES: Pupils equal and round. No scleral icterus. No injection or drainage. ENT: No nasal bleeding or discharge. Mucous membranes pink and moist. NECK: Trachea midline. No JVD. CARDIOVASCULAR: Regular rate and rhythm. RESPIRATORY: No accessory muscle use. Clear to auscultation. Breath sounds equal bilaterally. GASTROINTESTINAL: Abdomen soft, non-tender, nondistended. Hepatic and splenic margins not palpable. MUSCULOSKELETAL: Extremities without clubbing, cyanosis, or edema. No obvious deformities. NEUROLOGICAL: Awake and alert. No obvious cranial nerve deficits. Motor grossly within normal limits. Five out of 5 muscle strength in the arms and legs. Normal speech. PSYCHIATRIC: Appropriate mood and affect; insight and judgment normal. Data Data Last Documented VS Vital Signs Date Time Temp Pulse Resp B/P Pulse Ox O2 Delivery O2 Flow Rate FiO2 12/07/16 07:38 98.0 78 20 124/75 100 Room Air Orders Ketorolac Inj (Toradol Inj) (12/07/16 08:00) MDM Medical Decision Making Medical Screen Exam Complete: Yes Emergency Medical Condition: Yes Differential Diagnosis Cervical strain. Right shoulder strain. Muscle spasm. Workplace injury. Narrative Course Patient is medically stable at time of exam. Patient is given Toradol 60 mg IM. Patient was sent home on ibuprofen 600 mg 4 times a day #40. Patient also given Norflex 100 mg twice a day #20. Patient also given tramadol 50 mg one every 6 hours when necessary pain #20. Worker's Comp. forms completed with lifting restrictions until cleared by employee med. Patient is to follow with employee med next week to be cleared. Patient can return the emergency Department with worsening symptoms as needed. Diagnosis Primary Impression: Acute cervical myofascial strain Qualified Code: S16.1XXA - Acute cervical myofascial strain, initial encounter Additional Impressions: Right shoulder strain Qualified Code: S46.911A - Right shoulder strain, initial encounter Work related injury Referrals: Employ Med call for appointment Patient Instructions: Cervical Neck Strain Exercises (GEN), Cervical Strain (ED ), Exercises for Internal and External Shoulder Rotation (ED), Exercises for Shoulder Abduction and Adduction (ED), Exercises for Shoulder Flexion and Extension (ED), General Instructions Additional Instructions: Patient is given Toradol 60 mg IM. Patient was sent home on ibuprofen 600 mg 4 times a day #40. Patient also given Norflex 100 mg twice a day #20. Patient also given tramadol 50 mg one every 6 hours when necessary pain #20. Worker's Comp. forms completed with lifting restrictions until cleared by employee med. Patient is to follow with employee med next week to be cleared. Patient can return the emergency Department with worsening symptoms as needed. Med/Other Pt SpecificInfo: Prescription(s) given Disposition: 01 DISCHARGE HOME Condition: Stable Micah Aleman Dec 07, 2016 07:57
[2016-12-07] MEDS ORDERED: KETOROLAC TROMETHAMINE 60 MG/2 ML (IM) VIAL IM ONE (08:00)
[2016-12-07] MEDS ORDERED: ORPH100T99 PO (08:03)
[2016-12-07] MEDS ORDERED: IBUP-232 PO (08:03)
[2016-12-07] MEDS ORDERED: TRAM50TA PO (08:03)
== END 2016-12-07 08:41 | disposition home or self-care (01) ==
LOC: NEPK 07:35
DX: S16.1XXA Strain of muscle, fascia and tendon at neck level, initial encounter (principal); S46.911A Strain of unspecified muscle, fascia and tendon at shoulder and upper arm level, right arm, initial encounter; E03.9 Hypothyroidism, unspecified; X50.0XXA Overexertion from strenuous movement or load, initial encounter; X50.9XXA Other and unspecified overexertion or strenuous movements or postures, initial encounter; Y93.89 Activity, other specified; Y92.9 Unspecified place or not applicable; Y99.0 Civilian activity done for income or pay
CPT/HCPCS: 96372; 99284; J1885

== ENCOUNTER 2016-12-29 00:44 | Emergency (ER) | payer OTHER ==
[~2016-12-29] VITALS: Ht 172.7 cm; Wt 66.0 kg
[~2016-12-29 00:44] MED LIST changes: +IBUP-232 PO; +ORPH100T99 PO; +TRAM50TA PO
[2016-12-29 00:50] VITALS: BP 120/71; PULSE 70; RESP 16; O2SAT 99
--- NOTE | 2016-12-29 00:54 | PD ---
HPI Chief Complaint: Headache Time Seen by Provider: 00:48 Travel History International Travel<30 days: No Contact w/Intl Traveler<30days: No Traveled to known affect area: No History of Present Illness HPI 41-year-old female with history of migraines here for evaluation of a migraine headache. The patient reports progressively worsening pain behind her right eye. This is typical for her usual migraines. She tried her usual migraine medications, however the pain seems to be gradually worsening. Pain is associated with photophobia and nausea. No fevers or chills. PFSH Past Medical History Arthritis: Yes (RIGHT WRIST AND RIGHT KNEE) Asthma: Yes Autoimmune Disease: No Anxiety: Yes Depression: Yes Heart Rhythm Problems: No Cancer: No Cardiac Catheterization: No Cardiovascular Problems: No High Cholesterol: Yes (CORRECTED BY DIET) Chemotherapy: No Chest Pain: No Congestive Heart Failure: No COPD: No Cerebrovascular Accident: No Diabetes: No Diminished Hearing: No Endocrine: No Gastrointestinal Disorders: Yes GERD: No Genitourinary: Yes Headaches: Yes Hiatal Hernia: No Immune Disorder: No Kidney Stones: No Musculoskeletal: Yes Neurologic: Yes Psychiatric: Yes (patient has history with depression and self harming) Reproductive: No Respiratory: Yes (ASTHMA) Immunizations Current: Yes Migraines: Yes Renal Failure: Yes (STAGE 2 KIDNEY FAILURE) Seizures: No Sickle Cell Disease: No Sleep Apnea: No Thyroid Disease: Yes (HYPOTHYROID) Ulcer: No PNEUMOCCOCAL Vaccine (Year): 3 ?: Not : 3 Para: 3 Dilation and Curettage (D&C): Yes Tubal Ligation: Yes Past Surgical History Abdominal Surgery: Yes (GALLBLADDER, APPENDIX) AICD: No Appendectomy: Yes Arteriovenous Shunt: No Cardiac Surgery: No Cholecystectomy: Yes Coronary Artery Bypass Graft: No Ear Surgery: No Endocrine Surgery: No Eye Surgery: No Genitourinary Surgery: No Gynecologic Surgery: Yes (TUBAL, HYSTER) Hysterectomy: Yes Insulin Pump: No Joint Replacement: No Oral Surgery: Yes (WISDOM) Pacemaker: No Thoracic Surgery: No Tonsillectomy: Yes Other Surgery: Yes Social History Alcohol Use: No Tobacco Use: No Substance Use: No Allergies-Medications (Allergen,Severity, Reaction): Coded Allergies: Adhesives (Verified Allergy, Severe, Itching, 12/29/16) Bactrim (Verified Allergy, Severe, Hives, 12/29/16) Latex (Verified Allergy, Severe, RASH AND SHORTNESS OF BREATH, 12/29/16) Morphine (Verified Allergy, Severe, Shortness of Breath, 12/29/16) Percocet (Verified Allergy, Severe, Shortness of Breath (PATIENT TAKES LORTAB AT HOME), 12/29/16) Reported Meds & Prescriptions Reported Meds & Active Scripts Active Tramadol (Tramadol HCl) 50 Mg Tab 50 Mg PO Q6H PRN Orphenadrine CR (Orphenadrine Citrate) 100 Mg Tab 100 Mg PO Q12HR Ibuprofen 600 Mg Tab 600 Mg PO Q6H PRN Abilify (Aripiprazole) 2 Mg Tab 2 Mg PO DAILY 15 Days Reported Reglan (Metoclopramide HCl) 10 Mg Tab 10 Mg PO DIRECTED Fioricet (Hwqbghjpiv-Rxxfggzfmegkp-Wrccgyia) 50-300-40 Mg Cap 2 Cap PO Q6H PRN Ventolin Hfa 18 GM Inh (Albuterol Sulfate) 90 Mcg/Act Aer 2 Puff INH Q4-6H PRN Multiple Vitamin 1 Tab 1 Tab PO DAILY Synthroid (Levothyroxine Sodium) 75 Mcg Tab 75 Mcg PO DAILY Topamax (Topiramate) 50 Mg Tab 50 Mg PO BID Cymbalta DR (Duloxetine HCl) 30 Mg Capdr 30 Mg PO DAILY [Estroven] Review of Systems Except as stated in HPI: all other systems reviewed are Neg Physical Exam Narrative GENERAL: Well-developed, well-nourished, no apparent distress. SKIN: Focused skin assessment warm/dry. No rash. HEAD: Atraumatic. Normocephalic. EYES: Pupils equal and round. No scleral icterus. No injection or drainage. ENT: No nasal bleeding or discharge. Mucous membranes pink and moist. NECK: Trachea midline. No JVD. No nuchal rigidity. CARDIOVASCULAR: Regular rate and rhythm. RESPIRATORY: No accessory muscle use. Clear to auscultation. Breath sounds equal bilaterally. GASTROINTESTINAL: Abdomen soft, non-tender, nondistended. MUSCULOSKELETAL: No obvious deformities. No clubbing. No cyanosis. No edema. NEUROLOGICAL: Awake and alert. No obvious cranial nerve deficits. Motor grossly within normal limits. Normal speech. PSYCHIATRIC: Appropriate mood and affect; insight and judgment normal. Data Data Orders Ns (Bolus) Inj (12/29/16 01:00) Metoclopramide Inj (Reglan Inj) (12/29/16 01:00) Ketorolac Inj (Toradol Inj) (12/29/16 01:00) MDM Medical Decision Making Medical Screen Exam Complete: Yes Emergency Medical Condition: Yes Medical Record Reviewed: Yes Differential Diagnosis Migraine headache, tension headache, cluster headache, SAH/meningitis/ encephalitis unlikely Narrative Course This is a 41-year-old female with history of migraine headaches who is here for evaluation of pain that is typical for her usual migraine headache. Pain has been progressively getting worse over the last several hours. Plan is to provide the patient with IV Toradol, IV Reglan, a liter of normal saline IV, and reassess. Diagnosis Primary Impression: Migraine headache Qualified Code: G43.909 - Migraine without status migrainosus, not intractable , unspecified migraine type Referrals: Primary Care Physician 3 days Additional Instructions: Follow-up with your primary care physician or neurologist this week. Return to the emergency department for worsening symptoms or any other concerns. Disposition: 01 DISCHARGE HOME Condition: Stable Alejandro Jackson MD Dec 29, 2016 00:54
[2016-12-29] MEDS ORDERED: METOCLOPRAMIDE HCL 10 MG/2 ML VIAL IV PUSH ONE (01:00)
[2016-12-29] MEDS ORDERED: SODIUM CHLOR 0.9% 1000 ML INJ 1,000 ML IV ONE (01:00)
[2016-12-29] MEDS ORDERED: KETOROLAC TROMETHAMINE 30 MG/ML (IVP) VIAL IV PUSH ONE (01:00)
== END 2016-12-29 03:13 | disposition home or self-care (01) ==
LOC: NEPD 00:44
DX: G43.909 Migraine, unspecified, not intractable, without status migrainosus (principal); M13.80 Other specified arthritis, unspecified site; J45.909 Unspecified asthma, uncomplicated; E78.00 Pure hypercholesterolemia, unspecified; F41.9 Anxiety disorder, unspecified; F32.9 Major depressive disorder, single episode, unspecified; E03.9 Hypothyroidism, unspecified; Z79.899 Other long term (current) drug therapy
CPT/HCPCS: 96361; 96374; 96375; 99284; J1885; J2765; J7030

== ENCOUNTER 2017-01-01 19:17 | Emergency (ER) | payer OTHER ==
[~2017-01-01] VITALS: Ht 172.7 cm; Wt 66.0 kg
[2017-01-01 19:18] VITALS: BP 139/82; PULSE 81; RESP 16; TEMP 98.9; O2SAT 100
--- NOTE | 2017-01-01 19:31 | PD ---
Physical Exam Date Seen by Provider: Jan 01, 2017 Time Seen by Provider: 19:29 Narrative 41 yo female here for evaluation of migraine headache. Going on since yesterday. History of this in the past. Nausea reported with vomiting. Photophobia. Pain is 8/10. Not better with OTC meds. Vitals are stable. Awaiting bed placement. Data Data Last Documented VS Vital Signs Date Time Temp Pulse Resp B/P Pulse Ox O2 Delivery O2 Flow Rate FiO2 01/01/17 19:18 98.9 81 16 139/82 100 Room Air [facility] Medical Record Reviewed: Yes Supervised Visit with SALVATORE: Gideon Zhou Jan 01, 2017 19:30
[2017-01-01] MEDS ORDERED: NORC5TAB PO (19:49)
[2017-01-01] MEDS ORDERED: ESTRTAB6 PO (19:49)
[2017-01-01] MEDS ORDERED: ALPR.25 PO (19:49)
[2017-01-01] MEDS ORDERED: CYCL5TAB PO (19:49)
[2017-01-01] MEDS ORDERED: FISHCAP4 PO (19:49)
[2017-01-01] MEDS ORDERED: ABIL2TAB2 PO (19:49)
[2017-01-01] MEDS ORDERED: SODIUM CHLOR 0.9% 1000 ML INJ 1,000 ML IV ONE ×2 (19:57→23:00)
[2017-01-01] MEDS ORDERED: KETOROLAC TROMETHAMINE 30 MG/ML (IVP) VIAL IVP ONE (20:00)
[2017-01-01] MEDS ORDERED: DEXAMETHASONE SOD PHOS 20 MG/5 ML VIAL IV PUSH ONE (20:00)
[2017-01-01] MEDS ORDERED: diphenhydrAMINE HCL 50 MG/ML VIAL IVP ONE (20:00)
[2017-01-01] MEDS ORDERED: SODIUM CHLORIDE 0.9% FLUSH 10 ML FLUSH IVF PRN (20:00)
[2017-01-01] MEDS ORDERED: METOCLOPRAMIDE HCL 10 MG/2 ML VIAL IVP ONE (20:00)
[2017-01-01 22:43] VITALS: BP 116/71; PULSE 74; RESP 18; TEMP 98.4; O2SAT 95; O2SAT 96
[2017-01-01] MEDS ORDERED: diphenhydrAMINE HCL 50 MG/ML VIAL IV PUSH ONE (23:00)
[2017-01-01] MEDS ORDERED: VALPROATE INJ 500 MG in SODIUM CHLORIDE 0.9% INJ 100 ML IV ONE (23:00)
[2017-01-01] MEDS ORDERED: METOCLOPRAMIDE HCL 10 MG/2 ML VIAL IV PUSH ONE (23:00)
[2017-01-01 23:05] LABS: AUTOMATED NEUTROPHIL # 3.2 TH/MM3 (1.8-7.7); BASOPHIL # 0.1 TH/MM3 (0-0.2); BASOPHIL % 1.4 % (0.0-2.0); EOSINOPHIL # 0.3 TH/MM3 (0-0.4); EOSINOPHIL % 4.9 % (0.0-4.0); HEMATOCRIT 36.9 % (35.0-46.0); HEMO FLAGS DIFF FINAL; LYMPH % 36.9 % (9.0-44.0); LYMPHOCYTE # 2.4 TH/MM3 (1.0-4.8); MEAN CELL VOLUME 89.8 FL (80.0-100.0); MEAN CORPUSCULAR HEMOGLOBIN 30.8 PG (27.0-34.0); MEAN CORPUSCULAR HGB CONC 34.3 % (32.0-36.0); MONO % 7.9 % (0.0-8.0); NEUT % 48.9 % (16.0-70.0); PLATELET COUNT 307 TH/MM3 (150-450); RED BLOOD COUNT 4.11 MIL/MM3 (4.00-5.30); RED CELL DISTRIBUTION WIDTH 12.1 % (11.6-17.2); WHITE BLOOD COUNT 6.5 TH/MM3 (4.0-11.0)
[2017-01-01 23:26] LABS: ANION GAP 8 MEQ/L (5-15); AST (GOT) 42 U/L (15-37); BICARBONATE 23.1 MEQ/L (21.0-32.0); BLOOD UREA NITROGEN 12 MG/DL (7-18); CHLORIDE 111 MEQ/L (98-107); GLOMERULAR FILTRATION RATE 81 ML/MIN (>89); POTASSIUM 3.4 MEQ/L (3.5-5.1); SODIUM (NA) 142 MEQ/L (136-145)
[2017-01-01 23:27] LABS: ALT (GPT) 65 U/L (10-53)
[2017-01-01 23:32] LABS: ALKALINE PHOSPHATASE 65 U/L (45-117); BETA HCG QUANT LESS THAN 1 MIU/ML (0-5); TOTAL BILIRUBIN ADULT 0.3 MG/DL (0.2-1.0)
--- NOTE | 2017-01-02 00:33 | PD ---
HPI Chief Complaint: Headache Time Seen by Provider: 19:46 Travel History International Travel<30 days: No Contact w/Intl Traveler<30days: No Traveled to known affect area: No History of Present Illness HPI So 41 year-old woman a history of migraines presents emergency department complaining of recurrent migraine. She reports that she's had 2 migraines the past 4 days. She took her normal medications including Fioricet, Lortab, which didn't seem to help. She hasn't had as many headaches that she restart her Topamax. She otherwise had been feeling well and healthy before this. History Past Medical History Narrative Medical Migraines Depression Chronic kidney disease Influenza Vaccination: Yes PNEUMOCCOCAL Vaccine (Year): 3 : 3 Para: 3 Dilation and Curettage (D&C): Yes Social History Alcohol Use: No Tobacco Use: No Allergies-Medications (Allergen,Severity, Reaction): Coded Allergies: Adhesives (Verified Allergy, Severe, Itching, 01/01/17) Bactrim (Verified Allergy, Severe, Hives, 01/01/17) Latex (Verified Allergy, Severe, RASH AND SHORTNESS OF BREATH, 01/01/17) Morphine (Verified Allergy, Severe, Shortness of Breath, 01/01/17) Percocet (Verified Allergy, Severe, Shortness of Breath (PATIENT TAKES LORTAB AT HOME), 01/01/17) Imitrex (Verified Allergy, Mild, 01/01/17) CHEST PRESSRUE AND TROUBLE BREATHING Reported Meds & Prescriptions Reported Meds & Active Scripts Active Reported Flexeril (Cyclobenzaprine HCl) 5 Mg Tab 5 Mg PO HS [place] (Hydrocodone-Acetaminophen) 5-325 mg Tab 1 Tab PO Q6H PRN Xanax (Alprazolam) 0.25 Mg Tab 0.25 Mg PO DAILY PRN Estroven Mood & Memory (Black Cohosh-Soy Isoflavones-G) 1 Tab 1 Tab PO DAILY Fish Oil + D3 (Fish Oil-Cholecalciferol) 1,200-1,000 Mg-Unit Cap 1 Cap PO DAILY Abilify (Aripiprazole) 2 Mg Tab 2 Mg PO BID Reglan (Metoclopramide HCl) 10 Mg Tab 10 Mg PO DIRECTED Fioricet (Kzjfbzcbya-Zlxrezlmrkuqa-Gfrgriet) 50-300-40 Mg Cap 2 Cap PO TID PRN Ventolin Hfa 18 GM Inh (Albuterol Sulfate) 90 Mcg/Act Aer 2 Puff INH Q4-6H PRN Multiple Vitamin 1 Tab 1 Tab PO DAILY Synthroid (Levothyroxine Sodium) 75 Mcg Tab 75 Mcg PO DAILY Topamax (Topiramate) 50 Mg Tab 50 Mg PO BID Cymbalta DR (Duloxetine HCl) 30 Mg Capdr 30 Mg PO BID Review of Systems Except as stated in HPI: all other systems reviewed are Neg Physical Exam Narrative GENERAL: 41 year-old woman, no acute distress. Appears uncomfortable but nontoxic. SKIN: Focused skin assessment warm/dry. HEAD: Atraumatic. Normocephalic. EYES: Pupils equal and round. No scleral icterus. No injection or drainage. ENT: No nasal bleeding or discharge. Mucous membranes pink and moist. NECK: Trachea midline. No JVD. CARDIOVASCULAR: Regular rate and rhythm. No murmur appreciated. RESPIRATORY: No accessory muscle use. Clear to auscultation. Breath sounds equal bilaterally. GASTROINTESTINAL: Abdomen soft, non-tender, nondistended. Hepatic and splenic margins not palpable. MUSCULOSKELETAL: No obvious deformities. No clubbing. No cyanosis. No edema. NEUROLOGICAL: Awake and alert. No obvious cranial nerve deficits. Motor grossly within normal limits. Normal speech. PSYCHIATRIC: Appropriate mood and affect; insight and judgment normal. Data Data Last Documented VS Vital Signs Date Time Temp Pulse Resp B/P Pulse Ox O2 Delivery O2 Flow Rate FiO2 01/01/17 22:43 95 Room Air 01/01/17 22:43 98.4 74 18 116/71 Orders Ecg Monitoring (01/01/17 19:57) Iv Access Insert/Monitor (01/01/17 19:57) Oximetry (01/01/17 19:57) Sodium Chloride 0.9% Flush (Ns Flush) (01/01/17 20:00) Ketorolac Inj (Toradol Inj) (01/01/17 20:00) Diphenhydramine Inj (Benadryl Inj) (01/01/17 20:00) Metoclopramide Inj (Reglan Inj) (01/01/17 20:00) Sodium Chlor 0.9% 1000 Ml Inj (Ns 1000 M (01/01/17 19:57) Dexamethasone Inj (Decadron Inj) (01/01/17 20:00) Metoclopramide Inj (Reglan Inj) (01/01/17 23:00) Diphenhydramine Inj (Benadryl Inj) (01/01/17 23:00) Valproate Inj (Depacon Inj) (01/01/17 23:00) Complete Blood Count With Diff (01/01/17 22:46) Comprehensive Metabolic Panel (01/01/17 22:46) Beta Hcg (Quant/Titer) (01/01/17 22:46) Sodium Chlor 0.9% 1000 Ml Inj (Ns 1000 M (01/01/17 23:00) Labs Laboratory Tests Test 01/01/17 22:52 White Blood Count 6.5 TH/MM3 Red Blood Count 4.11 MIL/MM3 Hemoglobin 12.7 GM/DL Hematocrit 36.9 % Mean Corpuscular Volume 89.8 FL Mean Corpuscular Hemoglobin 30.8 PG Mean Corpuscular Hemoglobin 34.3 % Concent Red Cell Distribution Width 12.1 % Platelet Count 307 TH/MM3 Mean Platelet Volume 8.9 FL Neutrophils (%) (Auto) 48.9 % Lymphocytes (%) (Auto) 36.9 % Monocytes (%) (Auto) 7.9 % Eosinophils (%) (Auto) 4.9 % Basophils (%) (Auto) 1.4 % Neutrophils # (Auto) 3.2 TH/MM3 Lymphocytes # (Auto) 2.4 TH/MM3 Monocytes # (Auto) 0.5 TH/MM3 Eosinophils # (Auto) 0.3 TH/MM3 Basophils # (Auto) 0.1 TH/MM3 CBC Comment DIFF FINAL Differential Comment Sodium Level 142 MEQ/L Potassium Level 3.4 MEQ/L Chloride Level 111 MEQ/L Carbon Dioxide Level 23.1 MEQ/L Anion Gap 8 MEQ/L Blood Urea Nitrogen 12 MG/DL Creatinine 0.79 MG/DL Estimat Glomerular Filtration 81 ML/MIN Rate Random Glucose 102 MG/DL Calcium Level 8.4 MG/DL Total Bilirubin 0.3 MG/DL Aspartate Amino Transf 42 U/L (AST/SGOT) Alanine Aminotransferase 65 U/L (ALT/SGPT) Alkaline Phosphatase 65 U/L Total Protein 6.2 GM/DL Albumin 3.5 GM/DL Human Chorionic Gonadotropin, LESS THAN 1 Quant MIU/ML MDM Medical Decision Making Medical Screen Exam Complete: Yes Emergency Medical Condition: Yes Interpretation(s) LABS: CBC is unremarkable. CMP is unremarkable. Mildly elevated AST and ALT. HCG negative Differential Diagnosis Migraine, strain or sprain, other Narrative Course Medical decision-making 41 year-old woman presents to the emergency department migraine headache. Looks overall well. To 2 doses of medication to get her to respond. She feels improved now but not pain-free. She states she does feel a lot of to go home. Will follow up with her regular doctor. Diagnosis Primary Impression: Migraine headache Additional Instructions: Continue current medications. Follow up with your regular doctor in the next 2-3 days. Return to the emergency department for any worsening headache, or any other new or worsening symptoms. Med/Other Pt SpecificInfo: No Change to Meds Disposition: 01 DISCHARGE HOME Condition: Stable Greg Lugo MD Jan 02, 2017 00:33
[2017-01-02 00:57] VITALS: BP 110/76; PULSE 68; RESP 18; O2SAT 100
== END 2017-01-02 01:05 | disposition home or self-care (01) ==
LOC: NEPC 19:17
DX: G43.909 Migraine, unspecified, not intractable, without status migrainosus (principal); N18.9 Chronic kidney disease, unspecified; F32.9 Major depressive disorder, single episode, unspecified; Z79.899 Other long term (current) drug therapy; Z88.5 Allergy status to narcotic agent; Z88.8 Allergy status to other drugs, medicaments and biological substances
CPT/HCPCS: 80053; 84702; 85025; 96374; 96375; 96376; 99284; J1100; J1200; J1885; J2765; J7030

== ENCOUNTER → 2017-02-17 | Outpatient (CLI) | payer OTHER ==
[~2017-02-17] MED LIST changes: +ALPR.25 PO; +CYCL5TAB PO; -ESTRTAB6; +ESTRTAB6 PO; +FISHCAP4 PO; -IBUP-232 PO; +NORC5TAB PO; -ORPH100T99 PO; -TRAM50TA PO
[2017-02-17 07:29] LABS: AUTOMATED NEUTROPHIL # 5.7 TH/MM3 (1.8-7.7); BASOPHIL # 0.1 TH/MM3 (0-0.2); BASOPHIL % 1.1 % (0.0-2.0); EOSINOPHIL # 0.6 TH/MM3 (0-0.4); EOSINOPHIL % 6.3 % (0.0-4.0); HEMO FLAGS DIFF FINAL; LYMPH % 23.2 % (9.0-44.0); LYMPHOCYTE # 2.2 TH/MM3 (1.0-4.8); MEAN CELL VOLUME 91.7 FL (80.0-100.0); MEAN CORPUSCULAR HEMOGLOBIN 30.4 PG (27.0-34.0); MEAN CORPUSCULAR HGB CONC 33.1 % (32.0-36.0); MONO % 8.3 % (0.0-8.0); NEUT % 61.1 % (16.0-70.0); PLATELET COUNT 328 TH/MM3 (150-450); RED BLOOD COUNT 4.68 MIL/MM3 (4.00-5.30); RED CELL DISTRIBUTION WIDTH 12.9 % (11.6-17.2); WHITE BLOOD COUNT 9.4 TH/MM3 (4.0-11.0)
[2017-02-17 07:50] LABS: BACTERIA, URINE OCC /hpf; BLOOD, URINE NEG (NEG); COMMENT (UR) CULT NOT INDICATED; CULTURE IF INDICATED CULT NOT INDICATED; GLUCOSE,URINE NEG (NEG); KETONE, URINE NEG (NEG); MUCUS URINE FEW /lpf (OCC); NITRITE,URINE NEG (NEG); SQUAMOUS EPITHELIAL CELL URINE 1 /hpf (0-5); URINE COLOR YELLOW (YELLW/STRAW)
[2017-02-17 07:56] LABS: ANION GAP 8 MEQ/L (5-15); AST (GOT) 50 U/L (15-37); BICARBONATE 22.6 MEQ/L (21.0-32.0); BLOOD UREA NITROGEN 12 MG/DL (7-18); CHLORIDE 108 MEQ/L (98-107); GLOMERULAR FILTRATION RATE 67 ML/MIN (>89); GLUCOSE,FASTING 85 MG/DL (74-99); POTASSIUM 3.8 MEQ/L (3.5-5.1); SODIUM (NA) 139 MEQ/L (136-145)
[2017-02-17 08:22] LABS: ALKALINE PHOSPHATASE 73 U/L (45-117); ALT (GPT) 107 U/L (10-53); HDL CHOLESTEROL 65.1 MG/DL (40.0-60.0); LDL CHOLESTEROL 97 MG/DL (0-99); THYROXINE (T4) 8.6 MCG/DL (4.8-13.9); TOTAL BILIRUBIN ADULT 0.4 MG/DL (0.2-1.0)
== END ==
LOC: CLAB 06:53
DX: R79.89 Other specified abnormal findings of blood chemistry (principal); D64.9 Anemia, unspecified; E03.9 Hypothyroidism, unspecified; E55.9 Vitamin D deficiency, unspecified; E78.5 Hyperlipidemia, unspecified; Z79.899 Other long term (current) drug therapy
CPT/HCPCS: 36415; 80053; 80061; 81001; 82306; 82607; 82746; 84436; 84443; 85025

== ENCOUNTER → 2017-03-20 | Outpatient (CLI) | payer OTHER ==
[2017-03-20 12:19] LABS: INDIRECT BILIRUBIN 0.3 MG/DL (0.0-0.8); TOTAL BILIRUBIN ADULT 0.4 MG/DL (0.2-1.0)
== END ==
LOC: CLAB 11:13
DX: Z79.899 Other long term (current) drug therapy (principal)
CPT/HCPCS: 36415; 80076

== ENCOUNTER 2017-07-22 16:43 | Emergency (ER) | payer OTHER ==
[~2017-07-22] VITALS: Ht 172.7 cm; Wt 68.2 kg
[~2017-07-22 16:43] MED LIST changes: -ABIL2TAB2 PO; +ARIP2 PO
[2017-07-22 16:44] VITALS: BP 136/79; PULSE 74; RESP 17; TEMP 97.6; O2SAT 100
--- NOTE | 2017-07-22 17:50 | PD ---
HPI Chief Complaint: Headache Time Seen by Provider: 17:37 Travel History International Travel<30 days: No Contact w/Intl Traveler<30days: No Traveled to known affect area: No History of Present Illness HPI 41yo F with PMH of hypothyroidism, asthma, migraine headache presents to the ED with c/o headache since last night. Pt said it feels like her usual migraine and that takes topamax 3 times a day and had missed a dose Friday. However, she took her toradol and reglan and it didnt help. Last toradol dose was 2am. Said headache is behind right eye where it always is and associated with photophobia, nausea. Pt follows with Dr. Odonnell neurologist for this. Denies any fever, throat pain, ear pain, chest pain, sob, abdominal pain, focal weakness or numbness. PFSH Past Medical History Arthritis: Yes (RIGHT WRIST AND RIGHT KNEE) Asthma: Yes Autoimmune Disease: No Anxiety: Yes Depression: Yes Heart Rhythm Problems: No Cancer: No Cardiac Catheterization: No Cardiovascular Problems: No High Cholesterol: Yes (CORRECTED BY DIET) Chemotherapy: No Chest Pain: No Congestive Heart Failure: No COPD: No Cerebrovascular Accident: No Diabetes: No Diminished Hearing: No Endocrine: No Gastrointestinal Disorders: Yes GERD: No Genitourinary: Yes Headaches: Yes Hiatal Hernia: No Immune Disorder: No Kidney Stones: No Musculoskeletal: Yes Neurologic: Yes Psychiatric: Yes Reproductive: No Respiratory: Yes (ASTHMA) Immunizations Current: Yes Migraines: Yes Renal Failure: Yes (STAGE 2 KIDNEY FAILURE) Seizures: No Sickle Cell Disease: No Sleep Apnea: No Thyroid Disease: Yes (HYPOTHYROID) Ulcer: No PNEUMOCCOCAL Vaccine (Year): 3 ?: Not : 3 Para: 3 Dilation and Curettage (D&C): Yes Tubal Ligation: Yes Past Surgical History Abdominal Surgery: Yes (GALLBLADDER, APPENDIX) AICD: No Appendectomy: Yes Arteriovenous Shunt: No Cardiac Surgery: No Cholecystectomy: Yes Coronary Artery Bypass Graft: No Ear Surgery: No Endocrine Surgery: No Eye Surgery: No Genitourinary Surgery: No Gynecologic Surgery: Yes (TUBAL, HYSTER) Hysterectomy: Yes Insulin Pump: No Joint Replacement: No Oral Surgery: Yes (WISDOM) Pacemaker: No Thoracic Surgery: No Tonsillectomy: Yes Other Surgery: Yes Social History Alcohol Use: No Tobacco Use: No Substance Use: No Allergies-Medications (Allergen,Severity, Reaction): Coded Allergies: acetaminophen (Unverified Allergy, Severe, Shortness of Breath (PATIENT TAKES LORTAB AT HOME), 07/22/17) adhesive (Unverified Allergy, Severe, Itching, 07/22/17) latex (Unverified Allergy, Severe, RASH AND SHORTNESS OF BREATH, 07/22/17) morphine (Unverified Allergy, Severe, Shortness of Breath, 07/22/17) oxycodone (Unverified Allergy, Severe, Shortness of Breath (PATIENT TAKES LORTAB AT HOME), 07/22/17) sulfamethoxazole (Unverified Allergy, Severe, Hives, 07/22/17) trimethoprim (Unverified Allergy, Severe, Hives, 07/22/17) sumatriptan (Unverified Allergy, Mild, 07/22/17) CHEST PRESSRUE AND TROUBLE BREATHING Reported Meds & Prescriptions Reported Meds & Active Scripts Active Reported Flexeril (Cyclobenzaprine HCl) 5 Mg Tab 5 Mg PO HS [place] (Hydrocodone-Acetaminophen) 5-325 mg Tab 1 Tab PO Q6H PRN Xanax (Alprazolam) 0.25 Mg Tab 0.25 Mg PO DAILY PRN Estroven Mood & Memory (Black Cohosh-Soy Isoflavones-G) 1 Tab 1 Tab PO DAILY Fish Oil + D3 (Fish Oil-Cholecalciferol) 1,200-1,000 Mg-Unit Cap 1 Cap PO DAILY Abilify (Aripiprazole) 2 Mg Tab 2 Mg PO BID Reglan (Metoclopramide HCl) 10 Mg Tab 10 Mg PO DIRECTED Fioricet (Lszulaglji-Zhdbokrpuujpc-Qpmxowhk) 50-300-40 Mg Cap 2 Cap PO TID PRN Ventolin Hfa 18 GM Inh (Albuterol Sulfate) 90 Mcg/Act Aer 2 Puff INH Q4-6H PRN Multiple Vitamin 1 Tab 1 Tab PO DAILY Synthroid (Levothyroxine Sodium) 75 Mcg Tab 75 Mcg PO DAILY Topamax (Topiramate) 50 Mg Tab 50 Mg PO BID Cymbalta DR (Duloxetine HCl) 30 Mg Capdr 30 Mg PO BID Review of Systems Except as stated in HPI: all other systems reviewed are Neg Physical Exam Narrative GENERAL: 41yo F in mild distress. SKIN: Focused skin assessment warm/dry. HEAD: Atraumatic. Normocephalic. EYES: Pupils equal and round at 3mm bilaterally. EOMI. ENT: No nasal bleeding or discharge. Mucous membranes pink and moist. NECK: No nuchal rigidity. CARDIOVASCULAR: Regular rate and rhythm. No murmur appreciated. RESPIRATORY: No accessory muscle use. Clear to auscultation. Breath sounds equal bilaterally. GASTROINTESTINAL: Abdomen soft, non-tender, nondistended. MUSCULOSKELETAL: No obvious deformities. No clubbing. No cyanosis. No edema. NEUROLOGICAL: Awake and alert. No obvious cranial nerve deficits. Motor grossly within normal limits. Normal speech. PSYCHIATRIC: Appropriate mood and affect; insight and judgment normal. Data Data Last Documented VS Vital Signs Date Time Temp Pulse Resp B/P (MAP) Pulse Ox O2 Delivery O2 Flow Rate FiO2 07/22/17 16:44 97.6 74 17 136/79 (98) 100 Orders Orders Prochlorperazine Inj (Compazine Inj) (07/22/17 18:00) Ketorolac Inj (Toradol Inj) (07/22/17 18:00) Sodium Chlor 0.9% 1000 Ml Inj (Ns 1000 M (07/22/17 18:00) MDM Medical Decision Making Medical Screen Exam Complete: Yes Emergency Medical Condition: Yes Differential Diagnosis Migraine headache vs. tension headache vs. sinus headache Narrative Course 41yo F here with headache since last night that feels like her migraine headache. No red flags. Feels like her usual migraine headache. No focal neurologic deficits. Pt given compazine, toradol and NS IVF. Pt reevaluated at bedside and feels better. Pt has neurologist Dr. Odonnell to follow up with. She is a nurse here. Return precautions given. Diagnosis Primary Impression: Migraine headache Qualified Codes: G43.909 - Migraine, unspecified, not intractable, without status migrainosus Patient Instructions: General Instructions Departure Forms: Tests/Procedures Additional Instructions: Please follow up with your neurologist in 2-3 days. Return to the ED if symptoms worsen. Med/Other Pt SpecificInfo: No Change to Meds Disposition: 01 DISCHARGE HOME Condition: Stable Tierra Zamorano DO Jul 22, 2017 17:50
[2017-07-22] MEDS ORDERED: KETOROLAC TROMETHAMINE 30 MG/ML (IVP) VIAL IV PUSH ONE (18:00)
[2017-07-22] MEDS ORDERED: PROCHLORPERAZINE INJ 10 MG/2 ML VIAL IV PUSH ONE (18:00)
[2017-07-22] MEDS ORDERED: SODIUM CHLOR 0.9% 1000 ML INJ 1,000 ML IV ONE (18:00)
== END 2017-07-22 19:04 | disposition home or self-care (01) ==
LOC: NEPD 16:43
DX: G43.909 Migraine, unspecified, not intractable, without status migrainosus (principal); E03.9 Hypothyroidism, unspecified
CPT/HCPCS: 96374; 96375; 99284; J0780; J1885; J7030

== ENCOUNTER 2018-01-20 05:02 | Inpatient (IN) ==
[2018-01-20] MEDS ORDERED: Ketorolac Inj 30 MG/ML (IVP) Vial IV.PUSH ONE (06:20)
[2018-01-20] MEDS ORDERED: Sod Chloride 0.9% Inj 1,000 ML IV.SIG ONE (06:20)
--- NOTE | 2018-01-20 06:50 | ED ---
HPI General Chief Complaint: Neuro Symptoms/Deficit Stated Complaint: Medical Time Seen by Provider: 01/20/18 05:43 History of Present Illness HPI Narrative: Patient has a history of migraines that leave her with some residual paresthesias from time to time she is on Topamax prophylactically gets migraines and she sees Dr. Odonnell neurologist for her treatment. Patient was in the ER a week ago with a severe migraine that left her with left-sided leg paresthesias and some facial paresthesias said her symptoms got better an MRI was done at that time was negative. Then patient progressively got worse in the last few days has had more paresthesias on her face felt difficulty talking felt her leg is getting more numb and comes in and is now in the ER once again she is continued on the Topamax she has discussed with Dr. Odonnell the plan for further investigation and he is ordered an MRI head and neck and carotid ultrasound and multiple studies for lupus including PHIL antiphospholipid cardiolipin as well as protein S Leiden 5. In the ER patient is feeling paresthesias to face paresthesias to the leg and globally weak and difficulty speaking due to the numbness in her face left-sided I order all the studies that were planned for outpatient and she will be evaluated I called Dr. Blas King calls back feels if the studies are negative and she is healthy 42- year-old she can be followed up as an outpatient. I will sign out to Dr. Hernandez the oncoming attending to follow-up the MRIs and the studies and labs Related Data Home Medications Medication Instructions Recorded Confirmed [id number] 1 - 2 tab PO QID PRN 01/03/18 01/20/18 [Fioricet] hydrocodone-acetaminophen 1 tab PO Q6H PRN 01/03/18 01/20/18 levothyroxine 75 mcg PO DAILY 01/03/18 01/20/18 metoclopramide HCl [Reglan] 10 mg PO PRN PRN 01/03/18 01/20/18 soy isofla-blk cohosh-mag bark 155 mg PO HS 01/03/18 01/20/18 [Estroven] topiramate [Topamax] 50 mg PO BID 01/03/18 01/20/18 albuterol sulfate [Ventolin HFA] 2 puff INHALATION TID 01/20/18 01/20/18 alprazolam [Xanax] 0.25 mg PO DAILY PRN 01/20/18 01/20/18 fexofenadine [Jeny Allergy] 180 mg PO DAILY 01/20/18 01/20/18 ranitidine HCl [Zantac] 150 mg PO DAILY 01/20/18 01/20/18 Allergies Allergy/AdvReac Type Severity Reaction Status Date / Time adhesive Allergy Severe Itching Verified 01/20/18 05:37 latex Allergy Severe RASH AND Verified 01/20/18 05:37 SHORTNESS OF BREATH milk [Dairy] Allergy Severe Migraine Verified 01/20/18 06:38 morphine Allergy Severe Shortness Verified 01/20/18 05:37 of Breath oxycodone Allergy Severe Shortness Verified 01/20/18 05:37 of Breath (PATIENT TAKES LORTAB AT HOME) sulfamethoxazole Allergy Severe Hives Verified 01/20/18 05:37 trimethoprim Allergy Severe Hives Verified 01/20/18 05:37 sumatriptan Allergy Mild Hives Verified 01/20/18 05:37 Review of Systems Except as stated in HPI: all other systems reviewed are negative [facility] Social History Social History Substance History: No History of Abuse Second Hand Smoke Exposure: No Smoking Status: Never smoker How Often Do You Have a Drink Containing Alcohol: Never Recent Travel in [facility] within the Last 8 Weeks: No Recent Out of Country Travel within the Last 8 Weeks: No Immunization History Tetanus Immunization: <5 Years Hx Influenza Vaccine This Season: Yes Exam Narrative Exam Narrative: GENERAL: appears aprehensive over her current medical situation and has halted in her speech SKIN: Warm and dry. HEAD: Atraumatic. Normocephalic. EYES: Pupils equal and round. No scleral icterus. No injection or drainage. ENT: No nasal bleeding or discharge. Mucous membranes pink and moist. NECK: Trachea midline. No JVD. CARDIOVASCULAR: Regular rate and rhythm. RESPIRATORY: No accessory muscle use. GASTROINTESTINAL: Abdomen soft, nondistended. Hepatic and splenic margins not palpable. MUSCULOSKELETAL: Extremities . No obvious deformities. NEUROLOGICAL: Awake and alert. No obvious cranial nerve deficits. Motor grossly within normal limits. Five out of 5 muscle strength in the arms and legs. slower than normal and slightly halted speech. PSYCHIATRIC: mood apprehensive affect; insight and judgment normal. Course Initial Documented Vital Signs Temperature 98.6 F 01/20/18 05:21 Pulse Rate 84 01/20/18 05:21 Respiratory Rate 15 01/20/18 05:21 Blood Pressure 128/84 01/20/18 05:21 Pulse Oximetry 100 01/20/18 05:21 Last Documented Vital Signs Temperature 97.1 F L 01/21/18 08:00 Pulse Rate 65 01/21/18 08:00 Respiratory Rate 15 01/21/18 08:00 Blood Pressure 117/67 01/21/18 08:00 Pulse Oximetry 98 01/21/18 08:00 Sign Out Sign Out Data: Patient Sign Out occurred on 01/20/18 at 08:11. Patient's care was discussed, and care was transferred from [place] to Naveen Hernandez. Sign Out Comment: Patient has paresthesias to her left cheek and her left leg she has had MRA head and neck and she has a carotid ultrasound ordered if they were all negative Dr. King thought she could go out and follow-up as an outpatient she also has antiphospholipid anti-and DNA protein C protein S all pending mostly send outs will not be resulted today she can be discharged follow -up Dr. Odonnell her neurologist Last updated by [place] at 01/20/18 07:04 Post-Handoff Eval: Discussed this case with primary care physician Dr. Ricki Tineo, with that he would be in best interest to go ahead and admit the patient and have Dr. Odonnell consulted for further follow-up and evaluation. On reevaluation the patient had clear speech, stated that her headache was better and did not need or want any additional pain medication at this time. agreed with admission. NIH Stroke Scale NIH Stroke Scale Level of Consciousness: 0-Alert Orientation Questions: 0-Answers both correct Responds to Commands: 0-Both tasks correct Gaze Eye Movement: 0-Horizontal movement WNL Visual [place]: 0-No visual field defect Facial Movement: 0-Normal Motor Functions Arm LEFT: 0-No drift Motor Functions Arm RIGHT: 0-No drift Motor Functions Leg LEFT: 0-No drift Motor Functions Leg RIGHT: 0-No drift Limb Ataxia: 0-No ataxia Sensory Loss: 0-No sensory loss Best Language: 0-Normal Articulation: 0-Normal Extinction or Inattention Sensory: 0-Absent Total: 0 Medical Decision Making MDM Narrative Medical decision making narrative: I order multiple imaging studies MRA NECK HEAD And US carotid and labs including PHIL and antiphospholipid other signed out to Dr Hernandez and I called Dr Odonnell and Juan called back discussed case with him he will follow up MRI MRA other studies Differential Diagnosis Differential Diagnosis: migraine with paresthesia vs todds paralysis with focal seizures vs nerve praxia from spinal muscle tension , vs other Lab Data Lab Results 01/20/18 01/20/18 Range/Units 06:35 06:35 Protein C Antigen 132 (70-150) % Factor V Leiden Mutat Negative (Negative) Factor V Leiden Interp . Fact V Leiden Review By Sylwia boles m.d. PHIL Screen Neg (Neg) Anti-Cardiolipin IgG Ab <9.4 GPL Anti-Cardiolipin IgM Ab <9.4 MPL Imaging Data Radiologist's impression: Cervical Spine MRI 01/20/18 00:00 CONCLUSION: 1. Degenerative disc disease at C5-6 and C6-7. Head MRA 01/20/18 05:43 CONCLUSION: 1. Negative MRA Cow ([place] [facility] [place]) non contrast. Head MRI 01/20/18 05:44 CONCLUSION: 1. Negative MR Brain with and without contrast. Neck MRA 01/20/18 05:44 CONCLUSION: 1. Negative MRA Carotids. Percent stenosis is calculated using the diameter of the stenotic region over the diameter of the normal distal internal carotid artery Carotid Doppler Study 01/20/18 05:53 CONCLUSION: 1. Right Internal Carotid Artery: No significant stenosis or atherosclerotic plaque is visualized. 2. Left Internal Carotid Artery: No significant stenosis or atherosclerotic plaque is visualized. Discharge Plan Discharge Disposition Patient Disposition: 30 Still Patient Discharge Condition Condition: Stable Discharge Order Discharge Orders: Discharge Order (Routine); Ordered 01/21/18 Ordered By: Brannon Tineo Discharge Details Anticipated Discharge Date: 01/21/18 Diagnosis: Paresthesia, Migraine Physicians Team ED Provider: Naveen Hernandez Primary Care Provider: Brannon Tineo Attending Provider: Brannon Tineo Other Providers: Surya King Status ED Status: Left Department Discharge Information Discharge Date/Time: 01/20/18 13:00
--- NOTE | 2018-01-20 08:19 | US ---
EXAM DATE: 01/20/2018 8:14 AM EDT AGE/SEX: 42 years / Female INDICATIONS: Slurred speech. CLINICAL DATA: This is the patient's initial encounter. Patient reports that signs and symptoms have been present for 2 days and indicates a pain score of 1/10. MEDICAL/SURGICAL HISTORY: Hypothyroidism. Anxiety. Depression. Migraine. Hysterectomy. COMPARISON: No prior exams available for comparison. VELOCITY PARAMETERS: ICA/CCA Ratio: Right 1.3 , Left 0.9 ICA: Right 133.7 cm/sec, Left 98.4 cm/sec CCA: Right 101.6 cm/sec, Left 114.0 cm/sec ECA: Right 90.3 cm/sec, Left 86.5 cm/sec Vertebral: Right 49.3 cm/sec antegrade, Left 59.2 cm/sec antegrade FINDINGS: Right Carotid: Minimal plaque is visualized.The waveforms are within normal limits. Left Carotid: Minimal plaque is visualized. The waveforms are within normal limits. Other: None. CONCLUSION: 1. Right Internal Carotid Artery: No significant stenosis or atherosclerotic plaque is visualized. 2. Left Internal Carotid Artery: No significant stenosis or atherosclerotic plaque is visualized. Electronically signed by: Prasanth Juarez MD 01/20/2018 8:18 AM EDT
[2018-01-20] MEDS ORDERED: ALPRAZolam 0.25 MG Tablet PO PRN (09:12)
--- NOTE | 2018-01-20 09:36 | MR ---
EXAM DATE: 01/20/2018 9:27 AM EDT AGE/SEX: 42 years / Female INDICATIONS: CVA. Numbness and tingling left side. CLINICAL DATA: This is the patient's initial encounter. Patient reports that signs and symptoms have been present for 3 days and indicates a pain score of 0/10. MEDICAL/SURGICAL HISTORY: None. Cholecystectomy. Appendectomy. Hysterectomy. Tubal ligation. Tonsillectomy. COMPARISON: [facility] [place], MR HEAD W & W/O CONTRAST, 01/20/2018. . TECHNIQUE: 3D [id number] MRA was performed. Source images, multiplanar STS MIP, and 3D volum e MIP reconstructions were reviewed. FINDINGS: There is excellent visualization of the major intracranial arteries out to the second-order branch ve ssels. There is no evidence for aneurysm, vessel truncation or stenosis, and no evidence for vascula r malformation. CONCLUSION: 1. Negative MRA Cow ([place] [facility] [place]) non contrast. Electronically signed by: Timmy Tavares MD 01/20/2018 9:34 AM EDT
[2018-01-20] MEDS ORDERED: Gadobutrol PF 10 MMOL/10 ML Vial (for RAD) IV.SIG ONE (09:45)
--- NOTE | 2018-01-20 10:13 | MR ---
EXAM DATE: 01/20/2018 10:02 AM EDT AGE/SEX: 42 years / Female INDICATIONS: Stroke. Left sided numbness. CLINICAL DATA: This is the patient's initial encounter. Patient reports that signs and symptoms have been present for 2 days and indicates a pain score of 0/10. MEDICAL/SURGICAL HISTORY: None. Cholecystectomy. Hysterectomy. Tubal ligation. Tonsillectomy . Appendectomy. COMPARISON: [facility] [place], MR CERVICAL SPINE W & W/O CON, 01/20/2018. [facility] [place], US CAROTID DOPPLER BI, 8. [facility] [place], MR HEAD W/O CONTRAST, 01/03/2018. . TECHNIQUE: 10 ml Gadavist (gadobutrol) contrast infused MRA (single exam dose) of the extracranial circulation was performed using a neurovascular coil. Postprocessing was performed, including rotati ng sub-volume maximum intensity projections of each carotid artery, rotating full-volume maximum inte nsity projections of both carotid arteries, sagittal and coronal sliding thin-slab reformations of ea ch carotid artery, and left oblique sliding thin-slab reformation through the aortic arch to include the origin of the arch branch vessels. FINDINGS: Aortic Arch : There is a three-vessel origin of the great vessels from the aorta. No evidence of o stial narrowing. Right Carotid : The common carotid artery is intact. The carotid bulb has a normal configuration wi thout ulceration or narrowing. The internal carotid artery lumen is smooth without stenosis. The ex ternal carotid artery is intact. Left Carotid : The common carotid artery is intact. The carotid bulb has a normal configuration wit hout ulceration or narrowing. The internal carotid artery lumen is smooth without stenosis. The ext ernal carotid artery is intact. Vertebrals : The vertebral arteries have a symmetric diameter. No stenotic lesions are seen. CONCLUSION: 1. Negative MRA Carotids. Percent stenosis is calculated using the diameter of the stenotic region over the diameter of the nor mal distal internal carotid artery Electronically signed by: Timmy Tavares MD 01/20/2018 10:11 CELIA
--- NOTE | 2018-01-20 10:14 | MR ---
EXAM DATE: 01/20/2018 9:59 AM EDT AGE/SEX: 42 years / Female INDICATIONS: CVA. Left sided weakness. CLINICAL DATA: This is the patient's initial encounter. Patient reports that signs and symptoms have been present for 2 days and indicates a pain score of 0/10. MEDICAL/SURGICAL HISTORY: None. Appendectomy. Cholecystectomy. Tubal ligation. Tonsillectomy . COMPARISON: [facility], MRA HEAD W/O CONTRAST, 01/20/2018. [facility], MRA NECK W CONTRAST, 01/20/2018. [facility], M R HEAD W/O CONTRAST, 01/03/2018. [facility], CT HEAD W/O CONTRAST, 01/03/2018. . TECHNIQUE: Multiplanar, multisequence examination of the brain was performed without and with 10 ml G adavist (gadobutrol) contrast as a single exam dose. FINDINGS: Cerebrum: The ventricles are normal for age. No evidence of midline shift, mass lesion, hemorrhage or acute infarction. No extraaxial fluid collections are seen. The pituitary gland and suprasellar cistern are normal in configuration. White Matter: No significant signal abnormalities are seen in the white matter. Posterior Fossa: The cerebellum and brainstem are intact. The 4th ventricle is midline. The cerebel lopontine angle is unremarkable. The cerebellar tonsils are normal in position. Diffusion Imaging: No focal areas of restricted diffusion are seen. No evidence of acute infarction . Extracranial: The visualized portions of the orbits and paranasal sinuses are unremarkable. Post Contrast: No abnormal areas of parenchymal or dural enhancement. No evidence of blood-brain ba rrier breakdown. CONCLUSION: 1. Negative MR Brain with and without contrast. Electronically signed by: Timmy Tavares MD 01/20/2018 10:12 AM EDT
--- NOTE | 2018-01-20 10:15 | MR ---
EXAM DATE: 01/20/2018 10:07 AM EDT AGE/SEX: 42 years / Female INDICATIONS: Radiculopathy. Left sided weakness. CLINICAL DATA: This is the patient's initial encounter. Patient reports that signs and symptoms have been present for 2 days and indicates a pain score of 0/10. MEDICAL/SURGICAL HISTORY: None. Appendectomy. Cholecystectomy. Tubal ligation. Tonsillectomy . COMPARISON: [facility], MRA NECK W CONTRAST, 01/20/2018. [facility], MRA HEAD W/O CONTRAST, 01/20/2018. [facility], M R HEAD W & W/O CONTRAST, 01/20/2018. [facility], US CAROTID DOPPLER BI, 01/20/2018. [facility], MR HEAD W/O CONTRAS T, 01/03/2018. [facility], CT HEAD W/O CONTRAST, 01/03/2018. . TECHNIQUE: Multiplanar, multisequence MRI examination of the cervical spine was performed without an d with 10 ml Gadavist (gadobutrol) contrast as a single exam dose. FINDINGS: Vertebrae: Normal vertebral body height. Homogeneous marrow signal. Alignment: Normal. Cord: Normal configuration and signal. Post Fossa: The cerebellar tonsils are normal in position. Post Contrast: No abnormal areas of enhancement are seen. C2-C3: The thecal sac has a normal configuration. There is no evidence of disc herniation or spinal canal stenosis. The neural foramina are patent bilaterally. C3-C4: The thecal sac has a normal configuration. There is no evidence of disc herniation or spinal canal stenosis. The neural foramina are patent bilaterally. C4-C5: The thecal sac has a normal configuration. There is no evidence of disc herniation or spinal canal stenosis. The neural foramina are patent bilaterally. C5-C6: Right foraminal broad-based protrusion with slight abutment of the ventral exiting C6 nerve r oots. Trace foraminal encroachment. No canal stenosis. C6-C7: Minimal central disc bulge without canal or foraminal narrowing. C7-T1: No epidural impressions seen. CONCLUSION: 1. Degenerative disc disease at C5-6 and C6-7. Electronically signed by: Timmy Tavares MD 01/20/2018 10:14 AM EDT
[2018-01-20] MEDS ORDERED: BUTORPHANOL IV.PUSH ONE (12:00)
--- NOTE | 2018-01-20 13:04 | P.HPIM ---
History of Present Illness Service: INTERNAL MEDICINE Primary Care Physician: Brannon Tineo MD History of Present Illness: This patient is a 42 year old female who presents with report of marked difficulty for expresses her speech. She felt as though she knew what she wanted to say, but had marked difficulty in getting the words out. She also noticed some numbness and weakness for the left limbs, upper and lower. She had been seen by Neurology with a work up planned for her presenting complaints. She came to the [facility] due to recurrence of the adverse symptoms. She has major concern for an acute neurologic event and is admitted to the hospital in this regard. - Diagnosis (1) Left hemiparesis (2) Transient ischemic attack (3) Expressive aphasia Review of Systems Constitutional: Reports headache(s), Reports weakness Musculoskeletal: Reports muscle weakness, Reports numbness Neurologic: Reports abnormal speech, Reports headache(s), Reports localized weakness, Reports numbness, Reports weakness PMFSH - History History Provided By: Patient - Medical History Medical History: Medical History (Last Reviewed 01/03/18 @ 14:44 by Oli Romero MD) Anxiety Depression H/O: hysterectomy Hypothyroid Migraine - Tobacco History Second Hand Smoke Exposure: No Smoking Status: Never smoker - Alcohol History How Often Do You Have a Drink Containing Alcohol: Never - Substance Use History Substance History: No History of Abuse - Travel History Recent Travel in the [place] Within the Last 8 Weeks: No Recent Travel Out of the Country Within the Last 8 Weeks: No - Immunization History Tetanus Immunization: <5 Years Hx Influenza Vaccine This Season: Yes Medications and Allergies Active Medications: Active Medications Albuterol (Ventolin Hfa Inh) 2 puff INH TID JENNIFER Alprazolam (Xanax) 0.25 mg PO DAILY PRN PRN Reason: Anxiety Famotidine (Pepcid) 20 mg PO DAILY JENNIFER Levothyroxine Sodium (Synthroid) 75 mcg PO DAILY@0600 JENNIFER Loratadine (Claritin) 10 mg PO DAILY JENNIFER Topiramate (Topamax) 50 mg PO BID JENNIFER Allergies Allergy/AdvReac Type Severity Reaction Status Date / Time adhesive Allergy Severe Itching Verified 01/20/18 05:37 latex Allergy Severe RASH AND Verified 01/20/18 05:37 SHORTNESS OF BREATH milk [Dairy] Allergy Severe Migraine Verified 01/20/18 06:38 morphine Allergy Severe Shortness Verified 01/20/18 05:37 of Breath oxycodone Allergy Severe Shortness Verified 01/20/18 05:37 of Breath (PATIENT TAKES LORTAB AT HOME) sulfamethoxazole Allergy Severe Hives Verified 01/20/18 05:37 trimethoprim Allergy Severe Hives Verified 01/20/18 05:37 sumatriptan Allergy Mild Hives Verified 01/20/18 05:37 Home Medications Medication Instructions Recorded Confirmed Type [id number] 1 - 2 tab PO QID PRN 01/03/18 01/20/18 History [Fioricet] hydrocodone-acetaminophen 1 tab PO Q6H PRN 01/03/18 01/20/18 History levothyroxine 75 mcg PO DAILY 01/03/18 01/20/18 History metoclopramide HCl [Reglan] 10 mg PO PRN PRN 01/03/18 01/20/18 History soy isofla-blk cohosh-mag bark 155 mg PO HS 01/03/18 01/20/18 History [Estroven] topiramate [Topamax] 50 mg PO BID 01/03/18 01/20/18 History albuterol sulfate [Ventolin HFA] 2 puff INHALATION TID 01/20/18 01/20/18 History alprazolam [Xanax] 0.25 mg PO DAILY PRN 01/20/18 01/20/18 History fexofenadine [Jeny Allergy] 180 mg PO DAILY 01/20/18 01/20/18 History ranitidine HCl [Zantac] 150 mg PO DAILY 01/20/18 01/20/18 History Exam Vital signs: Vital Signs 01/20/18 05:21 01/20/18 07:00 01/20/18 07:35 Temperature 98.6 F 97.9 F Pulse Rate 84 77 Respiratory Rate 15 16 18 Blood Pressure 128/84 117/67 Pulse Oximetry 100 100 01/20/18 10:00 01/20/18 11:00 01/20/18 12:09 Temperature 97.9 F 97.8 F 97.9 F Pulse Rate 73 76 79 Respiratory Rate 16 18 18 Blood Pressure 106/59 L 102/60 111/67 Pulse Oximetry 99 98 01/20/18 12:35 Temperature Pulse Rate Respiratory Rate 16 Blood Pressure Pulse Oximetry Intake & Output 07/30/18 07/31/18 07/31/18 18:59 06:59 18:59 Intake Total 300 / 300 Output Total 400 / 400 Balance -100 / -100 Weight 62.596 kg Intake: Oral 300 / 300 Output: Urine 400 / 400 Other: # Voids 1 - Constitutional no acute distress - Routine HEENT Exam Head: Present: normocephalic, atraumatic Eye: Present: EOMI, PERRL, normal accommodation ENT: Present: mucous membranes moist, nares patent - Routine Neck Exam Present: supple, full ROM, normal carotid upstroke - Routine Respiratory Exam Present: CTA bilaterally - Routine Cardiovascular Exam Present: RRR, S1, S2 - Routine Abdominal Exam Present: soft, normoactive bowel sounds - Routine Extremities Exam Present: full ROM, pulses intact Comments: There is strength testing of 5/5 for the right upper and lower limbs. Strength testing is of 4/5 for the left and left lower limbs. - Routine Skin Exam Present: intact, dry, warm - Routine Neurological Exam Present: alert, oriented X3, CN II-XII intact, motor deficit, moving all extremities The movements for the left upper and lower limbs are with less strength and the speech is mildly slower in expression. Tongue is slight protrusion to the left. Results - Imaging Impressions Cervical Spine MRI 01/20/18 00:00 CONCLUSION: 1. Degenerative disc disease at C5-6 and C6-7. Head MRA 01/20/18 05:43 CONCLUSION: 1. Negative MRA Cow ([place] [facility] [place]) non contrast. Head MRI 01/20/18 05:44 CONCLUSION: 1. Negative MR Brain with and without contrast. Neck MRA 01/20/18 05:44 CONCLUSION: 1. Negative MRA Carotids. Percent stenosis is calculated using the diameter of the stenotic region over the diameter of the normal distal internal carotid artery Carotid Doppler Study 01/20/18 05:53 CONCLUSION: 1. Right Internal Carotid Artery: No significant stenosis or atherosclerotic plaque is visualized. 2. Left Internal Carotid Artery: No significant stenosis or atherosclerotic plaque is visualized. Caprini VTE Risk Assessment Caprini VTE Risk Assessment: No/Low Risk (score <= 1) Caprini Risk Assessment Model: Point Value = 1 Point Value = 2 Point Value = 3 Point Value = 5 Age 41-60 Minor surgery BMI > 25 kg/m2 Swollen legs Varicose veins or History of unexplained or recurrent spontaneous Oral contraceptives or hormone replacement Sepsis (< 1 month) Serious lung disease, including pneumonia (< 1 month) Abnormal pulmonary function Acute myocardial infarction Congestive heart failure (< 1 month) History of inflammatory bowel disease Medical patient at bed rest Age 61-74 Arthroscopic surgery Major open surgery (> 45 min) Laparoscopic surgery (> 45 min) Malignancy Confined to bed (> 72 hours) Immobilizing plaster cast Central venous access Age >= 75 History of VTE Family history of VTE Factor V Leiden Prothrombin [id number] Lupus anticoagulant Anticardiolipin antibodies Elevated serum homocysteine Heparin-induced thrombocytopenia Other congenital or acquired thrombophilia Stroke (< 1 month) Elective arthroplasty Hip, pelvis, or leg fracture Acute spinal cord injury (< 1 month) Prophylaxis Regimen: Total Risk Factor Score Risk Level Prophylaxis Regimen 0-1 Low Early ambulation 2 Moderate Order ONE of the following: *Sequential Compression Device (SCD) *Heparin 5000 units SQ BID 3-4 Higher Order ONE of the following medications: *Heparin 5000 units SQ TID *Enoxaparin/Lovenox 40 mg SQ daily (WT < 150 kg, CrCl > 30 mL/min) *Enoxaparin/Lovenox 30 mg SQ daily (WT < 150 kg, CrCl > 10-29 mL/min) *Enoxaparin/Lovenox 30 mg SQ BID (WT < 150 kg, CrCl > 30 mL/min) AND/OR *Sequential Compression Device (SCD) 5 or more Highest Order ONE of the following medications: *Heparin 5000 units SQ TID (Preferred with Epidurals) *Enoxaparin/Lovenox 40 mg SQ daily (WT < 150 kg, CrCl > 30 mL/min) *Enoxaparin/Lovenox 30 mg SQ daily (WT < 150 kg, CrCl > 10-29 mL/min) *Enoxaparin/Lovenox 30 mg SQ BID (WT < 150 kg, CrCl > 30 mL/min) AND *Sequential Compression Device (SCD) Assessment and Plan - Assessment (1) Left hemiparesis Code(s): G81.94 - Hemiplegia, unspecified affecting left nondominant side Status: Acute (2) Transient ischemic attack Code(s): G45.9 - Transient cerebral ischemic attack, unspecified Status: Acute (3) Expressive aphasia Code(s): R47.01 - Aphasia Status: Acute - Plan 1. Admit to the hospital in Observation status. 2. Neurology Consultation. 3. MRI/MRA of the Brain. 4. MRI/MRA of the Neck. 5. Carotid Ultrasound study. 6. Consider Cardiology Consultation. 7. DVT and PE prophylaxis. - Attending Attestation This patient will require at least 3 days of hospitalization stay due to need for a complete neurological workup and treatment regarding her neurologic deficits. I anticipate that she will go home after discharge.
[2018-01-20] MEDS: Butalbital/APAP/Caff 50/325/40 MG Tablet PO PRN ×2 (17:33→23:31)
[2018-01-20] MEDS: Topiramate 25 MG Tablet PO SCH (21:31)
[2018-01-21 05:06] VITALS: O2SAT 98
[2018-01-21] MEDS: Butalbital/APAP/Caff 50/325/40 MG Tablet PO PRN (05:15)
[2018-01-21] MEDS ORDERED: Levothyroxine 75 MCG Tablet PO SCH (06:00)
--- NOTE | 2018-01-21 07:52 | P.CONNEU ---
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 She is apparently noted by coworkers to have some slurred speech. States over the past 2-3 weeks been having some numbness tingling in her left side. She had MRIs performed previously which were negative. She is followed in our office. Is thought that she may have hemiplegic comp located migraines. She does endorse a headache with mild photophobia phonophobia in addition to mild to moderate level of stressors. Denies any focal weakness vision loss or language disturbance. Had an MRI MRA of the brain and carotids performed which are all normal. MRI the C-spine demonstrate normal cord with mild spondylitic changes. Review of Systems All other systems reviewed negative except as stated in HPI [facility] - History History Provided By: Patient - Medical History Medical History: Medical History (Last Reviewed 01/03/18 @ 14:44 by Oli Romero MD) Anxiety Depression H/O: hysterectomy Hypothyroid Migraine - Tobacco History Second Hand Smoke Exposure: No Smoking Status: Never smoker - Alcohol History How Often Do You Have a Drink Containing Alcohol: Never - Substance Use History Substance History: No History of Abuse - Travel History Recent Travel in the [place] Within the Last 8 Weeks: No Recent Travel Out of the Country Within the Last 8 Weeks: No - Immunization History Tetanus Immunization: <5 Years Hx Influenza Vaccine This Season: Yes Medications and Allergies Active Medications: Active Medications Acetaminophen/Butalbital/Caffeine (Fioricet 50-325-40) 1 tab PO Q6H PRN PRN Reason: HEADACHE Last Admin: 01/21/18 05:15 Dose: 1 tab Albuterol (Ventolin Hfa Inh) 2 puff INH TID JENNIFER Last Admin: 01/20/18 17:16 Dose: 2 puff Alprazolam (Xanax) 0.25 mg PO DAILY PRN PRN Reason: Anxiety Famotidine (Pepcid) 20 mg PO DAILY JENNIFER Levothyroxine Sodium (Synthroid) 75 mcg PO DAILY@0600 JENNIFER Last Admin: 01/21/18 05:14 Dose: 75 mcg Loratadine (Claritin) 10 mg PO DAILY JENNIFER Topiramate (Topamax) 50 mg PO BID [facility] Last Admin: 01/20/18 21:31 Dose: 50 mg Allergies Allergy/AdvReac Type Severity Reaction Status Date / Time adhesive Allergy Severe Itching Verified 01/20/18 05:37 latex Allergy Severe RASH AND Verified 01/20/18 05:37 SHORTNESS OF BREATH milk [Dairy] Allergy Severe Migraine Verified 01/20/18 06:38 morphine Allergy Severe Shortness Verified 01/20/18 05:37 of Breath oxycodone Allergy Severe Shortness Verified 01/20/18 05:37 of Breath (PATIENT TAKES LORTAB AT HOME) sulfamethoxazole Allergy Severe Hives Verified 01/20/18 05:37 trimethoprim Allergy Severe Hives Verified 01/20/18 05:37 sumatriptan Allergy Mild Hives Verified 01/20/18 05:37 Home Medications Medication Instructions Recorded Confirmed Type [id number]-[id number] 1 - 2 tab PO QID PRN 01/03/18 01/20/18 History [Fioricet] hydrocodone-acetaminophen 1 tab PO Q6H PRN 01/03/18 01/20/18 History levothyroxine 75 mcg PO DAILY 01/03/18 01/20/18 History metoclopramide HCl [Reglan] 10 mg PO PRN PRN 01/03/18 01/20/18 History soy isofla-blk cohosh-mag bark 155 mg PO HS 01/03/18 01/20/18 History [Estroven] topiramate [Topamax] 50 mg PO BID 01/03/18 01/20/18 History albuterol sulfate [Ventolin HFA] 2 puff INHALATION TID 01/20/18 01/20/18 History alprazolam [Xanax] 0.25 mg PO DAILY PRN 01/20/18 01/20/18 History fexofenadine [Jeny Allergy] 180 mg PO DAILY 01/20/18 01/20/18 History ranitidine HCl [Zantac] 150 mg PO DAILY 01/20/18 01/20/18 History Exam Vital signs: Vital Signs 01/20/18 10:00 01/20/18 11:00 01/20/18 12:09 Temperature 97.9 F 97.8 F 97.9 F Pulse Rate 73 76 79 Respiratory Rate 16 18 18 Blood Pressure 106/59 L 102/60 111/67 Pulse Oximetry 99 98 01/20/18 12:35 01/20/18 13:02 01/20/18 13:25 Temperature 97.8 F 97.9 F Pulse Rate 78 64 Respiratory Rate 16 16 20 Blood Pressure 102/66 141/78 H Pulse Oximetry 99 98 01/20/18 16:00 01/20/18 20:00 01/21/18 00:00 Temperature 97.8 F 98.5 F 97.9 F Pulse Rate 72 64 Respiratory Rate 20 18 20 Blood Pressure 116/60 126/69 112/67 Pulse Oximetry 100 97 97 01/21/18 04:00 Temperature 97.2 F L Pulse Rate Respiratory Rate 20 Blood Pressure 95/58 L Pulse Oximetry 98 Intake & Output 01/20/18 01/21/18 01/21/18 18:59 06:59 18:59 Intake Total 1300 / 1300 Output Total 400 / 400 Balance 900 / 900 Weight 63.503 kg 63.6 kg Intake: IV 1000 / 1000 NS Inj 1,000 ML @ Wide Open IV. 1000 / 1000 SIG BOLUS ONE Rx#:[id number] Oral 300 / 300 Output: Urine 400 / 400 Other: # Voids 2 1 Weight On Admission 140 kg Narrative: Awake alert oriented 3 no acute distress no aphasia clear speech articulate visual schafer full pupils 3 2 mm bilaterally no APD noted asymmetric no nuchal rigidity or tenderness sitting up in bed looks comfortable. No pronator drift no dystaxia able raise all 4 extremity gravity for at least 5 seconds. No a graphesthesia appreciated reflexes were 2++ plantar flexor - Constitutional no acute distress - Routine HEENT Exam Head: Present: normocephalic Eye: Present: EOMI ENT: Present: mucous membranes moist Results - Imaging Impressions Cervical Spine MRI 01/20/18 00:00 CONCLUSION: 1. Degenerative disc disease at C5-6 and C6-7. Head MRA 01/20/18 05:43 CONCLUSION: 1. Negative MRA Cow ([place] [facility]) non contrast. Head MRI 01/20/18 05:44 CONCLUSION: 1. Negative MR Brain with and without contrast. Neck MRA 01/20/18 05:44 CONCLUSION: 1. Negative MRA Carotids. Percent stenosis is calculated using the diameter of the stenotic region over the diameter of the normal distal internal carotid artery Carotid Doppler Study 01/20/18 05:53 CONCLUSION: 1. Right Internal Carotid Artery: No significant stenosis or atherosclerotic plaque is visualized. 2. Left Internal Carotid Artery: No significant stenosis or atherosclerotic plaque is visualized. Review/Management - Diagnosis (1) Paresthesia Code(s): R20.2 - Paresthesia of skin Status: Acute Current Visit: Yes (2) Migraine Code(s): G43.909 - Migraine, unspecified, not intractable, without status migrainosus Status: Acute Current Visit: Yes - Review/Management Plan: Multiple neuroimaging studies negative including MRI brain negative 2. Negative for stroke negative for mass, negative for any demyelinating lesion. Suspect complicated migraine Recommendations She take aspirin 81 mg daily Can be seen in the outpatient setting by cardiology for consideration of event monitor possible SYLVESTER although I suspect a very low yield She has hypercoagulable labs. Have been ordered and can be followed up with Dr. Odonnell in the office Can be discharged from neurologic standpoint follow-up with Dr. Odonnell in the outpatient setting further adjustments to her migraine medication medication. And consideration of adding an SSRI. Could consider EMG nerve conduction study (2) Migraine Qualifiers: Migraine type: unspecified Status migrainosus presence: with status migrainosus Intractability: intractable Qualified Code(s): G43.911 - Migraine , unspecified, intractable, with status migrainosus
[2018-01-21] MEDS: Topiramate 25 MG Tablet PO SCH (08:31)
[2018-01-21 08:57] VITALS: BP 117/67; PULSE 65; RESP 15; TEMP 97.1
[2018-01-21] MEDS ORDERED: Famotidine 20 MG Tablet PO SCH (09:00)
[2018-01-21] MEDS ORDERED: Loratadine 10 MG Tablet PO SCH (09:00)
[2018-01-21] MEDS ORDERED: Escitalopram 10 MG Tablet PO SCH (09:15)
[2018-01-22 15:30] LABS: Factor V Leiden Mutation Negative (Negative); Protein C Antigen 132 % (70-150)
== END 2018-01-21 11:26 | disposition home or self-care (01) ==
LOC: NEDA 05:02 → N05 05:02 → NEPC 05:02 → N05 13:00
PROVIDERS: ADMIT Internal Medicine; ATTEND Internal Medicine